=== PATIENT | female | born 1935 | race Caucasian/White ===

== ENCOUNTER 2020-10-14 16:18 | Inpatient (IN) | payer MEDICARE, OTHER ==
--- NOTE | 2020-10-14 16:50 | ED ---
General Adult HPI - General Chief complaint: Neuro Symptoms/Deficit Stated complaint: Not feeling right Time Seen by Provider: 10/14/20 16:32 Source: patient, family Mode of arrival: wheelchair Limitations: no limitations - History of Present Illness Initial comments: Dictation was produced using [employer] dictation software. please excuse any grammatical, word or spelling errors. Chief Complaint: 84-year-old female with past medical history of A. fib, diabetes, hypertension presents to the emergency department for tongue, left upper extremity, left lower extremity paresthesias History of Present Illness: 84-year-old female. She states that approximately 3-4 hours prior to arrival she began feeling abnormal symptoms. She states it began with lightheadedness. Shortly after she began feeling paresthesias to her tongue. She states that it's her whole tongue. Immediately after she started having symptoms to her left upper extremity left lower leg. She denies any weakness. He denies complete numbness but states that it feels like paresthesias. She denies any history of stroke or TIA. She has no pain complaints at this time. The ROS documented in this emergency department record has been reviewed and confirmed by me. Those systems with pertinent positive or negative responses have been documented in the HPI. All other systems are other negative and/or noncontributory. PHYSICAL EXAM: General Impression: Alert and oriented x3, not in acute distress, tearful HEENT: Normocephalic atraumatic, extra-ocular movements intact, pupils equal and reactive to light bilaterally, mucous membranes moist. Cardiovascular: Heart regular rate and rhythm Chest: Able to complete full sentences, no retractions, no tachypnea Abdomen: abdomen soft, non-tender, non-distended, no organomegaly Musculoskeletal: Pulses present and equal in all extremities, no peripheral edema Motor: no focal deficits noted Neurological: CN II-XII grossly intact, no focal motor or sensory deficits noted, sensation intact to painful stimuli, she states that there is a sensory deficit to light touch. She states she can feel light touch over it feels abnormal she describes as paresthesias. NIH of 1 Skin: Intact with no visualized rashes Psych: Anxious ED course: 84-year-old female presents with abnormal sensation to light touch of the tongue, left upper extremity left lower extremity for the last 3-4 hours. Vital signs upon arrival shows blood pressure 220/70, rest of vital signs within except acceptable limits. Patient appears slightly anxious at bedside. She has no pain complaints. Patient given NIH score of 1 for present but altered sensation Laboratory evaluation obtained. CBC remarkable. Coag panel is within accep table limits. Metabolic panel is unremarkable. There is potassium 5.[address] brain and CT angios shows no acute findings. There is a incidental 4 mm right upper lobe nodule. Patient given aspirin. She is reevaluated bedside at 6:50 PM these have sensory issues to her left part of her body. Patient given aspirin. She'll be admitted with consultation to neurology. EKG interpretation: Ventricular rate 90, A. fib, QRS 84, QTC 435. No NM prolongation, no QTC prolongation, no ST or T-wave changes noted. EKG compared to 10/21/2014 showing no changes. Overall, this EKG is unremarkable - Related Data Home Medications Medication Instructions Recorded Confirmed Cholecalciferol [Vitamin D3 (25 1,000 unit PO DAILY 10/20/14 10/20/14 Mcg = 1000 Iu)] Enalapril [Vasotec] 20 mg PO BID 10/20/14 10/20/14 Furosemide [Lasix] 20 mg PO DAILY 10/20/14 10/20/14 Omeprazole [PriLOSEC] 20 mg PO DAILY 10/20/14 10/20/14 Simvastatin [Zocor] 20 mg PO HS 10/20/14 10/20/14 Warfarin [Coumadin] 5 mg PO MOTH 10/20/14 10/20/14 Warfarin [Coumadin] 5 mg PO SUTUWEFRSA 10/20/14 10/20/14 amLODIPine [Norvasc] 5 mg PO DAILY 10/20/14 10/20/14 glyBURIDE [Glyburide] 2.5 mg PO BID 10/20/14 10/20/14 Previous Rx's Medication Instructions Recorded ALPRAZolam [Xanax] 0.25 mg PO TID PRN #20 tab 10/23/14 Aspirin 81 mg PO DAILY #30 chewable 10/23/14 HYDROcodone/APAP 5-325MG [[place] 1 each PO Q6HR PRN #30 tab 10/23/14 5-325] Allergies Allergy/AdvReac Type Severity Reaction Status Date / Time Penicillins Allergy Rash/Hives Verified 06/19/21 16:23 Review of Systems ROS Statement: Those systems with pertinent positive or pertinent negative responses have been documented in the HPI. ROS Other: All systems not noted in ROS Statement are negative. Past Medical History Past Medical History: Atrial Fibrillation, Cancer, Diabetes Mellitus, GERD/Reflux, Hyperlipidemia, Hypertension, Osteoarthritis (OA) Additional Past Medical History / Comment(s): breast ca lymph nodes on rt and radiation 10 years ago History of Any Multi-Drug Resistant Organisms: None Reported Past Surgical History: Appendectomy, Back Surgery, Breast Surgery, Joint Replacement, Orthopedic Surgery Additional Past Surgical History / Comment(s): left knee x2 rt knee arthroscopy bilat shoulders rotator cuffs back fusion 30 years ago due to have reconstruction of knee cap in december, colonoscopy, d&c, rt lumpectomy with lymph node dissection, lt ankle orif. Past Anesthesia/Blood Transfusion Reactions: Postoperative Nausea & Vomiting (PONV) Past Psychological History: Anxiety Past Alcohol Use History: Rare Past Drug Use History: None Reported - Past Family History Father Family Medical History: Coronary Artery Disease (CAD), CVA/TIA, Diabetes Mellitus Mother Family Medical History: Coronary Artery Disease (CAD), Hyperlipidemia, Hypertension, Renal Disease General Exam Limitations: no limitations Course Vital Signs 10/14/20 10/14/20 10/14/20 16:19 16:46 17:55 Temperature 97.9 F 97.9 F Pulse Rate 98 98 88 Respiratory 20 20 18 Rate Blood Pressure 228/70 228/70 183/90 O2 Sat by Pulse 97 97 97 Oximetry Medical Decision Making - Lab Data Result diagrams: 10/14/20 16:58 10/14/20 16:58 Lab Results 10/14/20 10/14/20 10/14/20 Range/Units 16:58 16:58 16:58 WBC 6.9 (3.8-10.6) k/uL RBC 4.73 (3.80-5.40) m/uL Hgb 15.2 (11.4-16.0) gm/dL Hct 45.6 (34.0-46.0) % MCV 96.4 (80.0-100.0) fL MCH 32.2 (25.0-35.0) pg MCHC 33.4 (31.0-37.0) g/dL RDW 13.0 (11.5-15.5) % Plt Count 192 (150-450) k/uL MPV 9.7 Neutrophils % 67 % Lymphocytes % 18 % Monocytes % 9 % Eosinophils % 2 % Basophils % 2 % Neutrophils # 4.6 (1.3-7.7) k/uL Lymphocytes # 1.3 (1.0-4.8) k/uL Monocytes # 0.6 (0-1.0) k/uL Eosinophils # 0.2 (0-0.7) k/uL Basophils # 0.1 (0-0.2) k/uL PT 20.8 H (9.0-12.0) sec INR 2.1 H (<1.2) APTT 23.1 (22.0-30.0) sec Sodium 140 (137-145) mmol/L Potassium 5.5 H (3.5-5.1) mmol/L Chloride 108 H (98-107) mmol/L Carbon Dioxide 21 L (22-30) mmol/L Anion Gap 11 mmol/L BUN 19 H (7-17) mg/dL Creatinine 0.95 (0.52-1.04) mg/dL Est GFR (CKD-EPI)AfAm 64 (>60 ml/min/1.73 sqM) Est GFR (CKD-EPI)NonAf 56 (>60 ml/min/1.73 sqM) Glucose 155 H (74-99) mg/dL Calcium 9.6 (8.4-10.2) mg/dL Magnesium 1.8 (1.6-2.3) mg/dL Disposition Clinical Impression: Sensory deficit, left Disposition: ADMITTED IP TO THIS HOSP Condition: Fair Referrals: Mary Vallecillo MD [Primary Care Provider] - 1-2 days
[2020-10-14 17:11] LABS: Basophils # (A) 0.1 k/uL (0-0.2); Basophils % (A) 2 %; Eosinophils # (A) 0.2 k/uL (0-0.7); Eosinophils % (A) 2 %; HCT 45.6 % (34.0-46.0); HGB 15.2 gm/dL (11.4-16.0); Lymphocytes # (A) 1.3 k/uL (1.0-4.8); Lymphocytes % (A) 18 %; MCH 32.2 pg (25.0-35.0); MCHC 33.4 g/dL (31.0-37.0); MCV 96.4 fL (80.0-100.0); Mean Platelet Volume 9.7; Monocytes # (A) 0.6 k/uL (0-1.0); Monocytes % (A) 9 %; Neutrophils # (A) 4.6 k/uL (1.3-7.7); Neutrophils % (A) 67 %; Platelet Count 192 k/uL (150-450); RBC 4.73 m/uL (3.80-5.40); WBC 6.9 k/uL (3.8-10.6)
[2020-10-14 17:20] LABS: INR 2.1 (<1.2); Partial Thromboplastin Time 23.1 sec (22.0-30.0); Prothrombin Time 20.8 sec (9.0-12.0)
[2020-10-14 17:28] LABS: Calcium 9.6 mg/dL (8.4-10.2); Magnesium 1.8 mg/dL (1.6-2.3)
[2020-10-14 17:31] LABS: Potassium 5.5 mmol/L (3.5-5.1)
--- NOTE | 2020-10-14 18:35 | CT ---
EXAM: CT brain wo con CLINICAL HISTORY: Weakness, dysarthria and left-sided tingling. COMPARISON: MR 10/22/2014. TECHNIQUE: Contiguous axial noncontrast images of the brain were obtained. Coronal and sagittal refor mats were generated and reviewed. Automated dose control was used for this exam. FINDINGS: There is no evidence for intracranial hemorrhage, mass effect or midline shift. The white matter is g rossly preserved. Ventricular size and configuration is within normal limits for degree of parenchymal volume. The paranasal sinuses are clear. The mastoid air cells are clear. No evidence for calvarial fracture. IMPRESSION: No acute intracranial abnormality.
--- NOTE | 2020-10-14 18:42 | CT ---
EXAMINATION TYPE: CT angio head neck DATE OF EXAM: 10/14/2020 HISTORY: Weakness, speech disturbance and left sided tingling COMPARISON: None available. CT DLP: 1695.7 mGycm. Automated Exposure Control for Dose Reduction was Utilized. TECHNIQUE: CTA scan of the neck is performed with IV Contrast, patient injected with 65 mL of Isovue 370, axial images are obtained, coronal and sagittal reformatted images are reviewed. Three-D recons tructed images are created on an independent workstation and reviewed. FINDINGS: There is mild atherosclerosis of the aortic arch. Otherwise normal three-vessel branching of the aort a. There is no evidence of high-grade stenosis, dissection or aneurysm seen in the bilateral common c arotid, cervical internal carotid and vertebral arteries. There is no evidence of high-grade stenosis, dissection or aneurysm in the intracranial internal oshea tid arteries, anterior, middle and posterior cerebral arteries as well as in the imaged vertebral and basilar arteries. The communicating arteries are unremarkable. There is incidental 4 mm right upper lobe nodule. IMPRESSION: No significant abnormality of the head/neck arteries. Incidental 4 mm right upper lobe nodule. Recommend follow-up.
[2020-10-14] MEDS ORDERED: NALOXONE 0.4 MG/ML 1 ML VIAL IV PRN (18:48)
[2020-10-14] MEDS ORDERED: ASPIRIN 81 MG PO STA (18:51)
[2020-10-14] MEDS: SODIUM CHLORIDE 0.9% 1,000 ML IV SCH (19:50)
[2020-10-14 20:31] LABS: Glucose,Whole Blood 168 mg/dL (75-99)
[2020-10-14] MEDS: INSULIN ASPART (NovoLOG) 100 UNIT/ML VIAL SQ SCH (20:48)
[2020-10-14] MEDS: cloNIDine HCL 0.1 MG TAB PO SCH (21:39)
[2020-10-15 05:50] LABS: Glucose,Whole Blood 126 mg/dL (75-99)
[2020-10-15] MEDS: INSULIN ASPART (NovoLOG) 100 UNIT/ML VIAL SQ SCH ×4 (05:56→20:24)
[2020-10-15] MEDS: cloNIDine HCL 0.1 MG TAB PO SCH (08:02)
--- NOTE | 2020-10-15 10:34 | P.CNNES ---
History of Present Illness Consult date: 10/15/20 Requesting physician: Denis Espinal Reason for Consult: suspect stroke because of left sensory deficit History of Present Illness: This is an 84-year-old right handed woman with medical history of atrial fibrillation, diabetes mellitus (for 15 years), hypertension (>15 years), multiple surgies on the left knee (at least 5 years) who presented emergency department on 10/14/2020 for left-sided paresthesia.. She presented around 16:18 on 10/14/2020. She stated that around 2pm on 10/14/2020 she began feeling off, she felt lightheaded and then started having paresthesia to her entire tongue then after that she had paresthesia of the left upper and lower extremity. She denies any weakness. She denies any new focal weakness, difficulty getting her words out, visual disturbance or difficulty swallowing. She said her symptoms lasted for couples hours. Since than having intermittent paresthesia of left hand/forearm and left leg. Patient denies history of stroke or TIAs in the past. Patient home medication i ncludes Coumadin and is compliant with her dose. Other home medications are simvastatin 20 mg daily at bedtime, lisinopril, hydralazine 50 mg 1 tablet twice a day, loratadine, Lasix, amlodipine, glyburide, omeprazole. Of note she said she had at least 5 surgies on the left knee and as result walks with a limb on the left leg and uses a walker. She also has difficulty getting her words out for the past 3 years and was told by her physician it was because of "neck nodules". Some of the work-up in the hospital consisted of: Initial vital signs his blood pressure of 228/70, heart rate of 98, respiratory of 20, temperature of 97.9 Fahrenheit oral and pulse ox of 97% at room air. Patient blood pressure has been in the range of 180s to 220 systolic and diastolic between 70s and 90. CT of the head is reported as no acute intracranial abnormality. I reviewed the CT of the head and I felt there is a lacunar infarct over the anterior edge of the right thalamus and appears chronic (or even subacute but does not appear acute). CT of the head and neck was reported as no significant abnormality. There is incidental 4 mm right upper lobe nodule. Recommend follow-up. EKG is reported as atrial fibrillation with premature ventricular or aberrantly conducted complexes. CBC with differential: Is within normal limits. Chemistry panel is a potassium is 5.5 and there is slight hemolysis. Sodium is 140, creatinine is 0.95, calcium is 9.6 and magnesium is 1.8 and those are within the normal limits. Glucose is 155 which is mildly elevated. Coagulation study: PT 20.8, INR: 2.1 and PTT: 23.1. INR is therapeutic. Review of Systems Review of system: The 12 point system was reviewed and apparent positive and negative per HPI. Past Medical History Past Medical History: Atrial Fibrillation, Cancer, Diabetes Mellitus, GERD/Reflux, Hypertension, Osteoarthritis (OA) Additional Past Medical History / Comment(s): breast ca lymph nodes removal on rt and radiation 10 years ago History of Any Multi-Drug Resistant Organisms: None Reported Past Surgical History: Appendectomy, Back Surgery, Breast Surgery, Joint Replacement, Orthopedic Surgery Additional Past Surgical History / Comment(s): left knee x4, rt knee arthroscopy, bilat shoulders rotator cuffs, back fusion 35years ago Past Anesthesia/Blood Transfusion Reactions: Postoperative Nausea & Vomiting (PONV) Past Psychological History: Anxiety Smoking Status: Former smoker Past Alcohol Use History: Rare Additional Past Alcohol Use History / Comment(s): occasional beers sociallu, stopped smoking at 25 years old Past Drug Use History: None Reported - Past Family History Father Family Medical History: Coronary Artery Disease (CAD), CVA/TIA, Diabetes Mellitus Mother Family Medical History: Coronary Artery Disease (CAD), Hyperlipidemia, Hypertension, Renal Disease Medications and Allergies Home Medications Medication Instructions Recorded Confirmed Type Furosemide [Lasix] 20 mg PO DAILY 10/20/14 10/14/20 History Omeprazole [PriLOSEC] 20 mg PO DAILY 10/20/14 10/14/20 History Simvastatin [Zocor] 20 mg PO HS 10/20/14 10/14/20 History glyBURIDE [Glyburide] 2.5 mg PO DAILY 10/20/14 10/14/20 History Loratadine 10 mg PO DAILY 10/14/20 10/14/20 History Warfarin Sodium 2 mg PO MOWE@1700 10/14/20 10/14/20 History Warfarin Sodium 4 mg PO SUTUTHFRSA@1700 10/14/20 10/14/20 History amLODIPine [Norvasc] 10 mg PO DAILY 10/14/20 10/14/20 History hydrALAZINE HCL 50 mg PO BID@0900,1700 10/14/20 10/14/20 History lisinopriL 30 mg PO DAILY 10/14/20 10/14/20 History Allergies Allergy/AdvReac Type Severity Reaction Status Date / Time Penicillins Allergy Rash/Hives Verified 10/14/20 18:51 Physical Examination - Vital Signs Vital Signs: Vital Signs Temp Pulse Pulse Resp BP BP Pulse Ox 10/15/20 08:00 52 L 10/15/20 07:58 97.5 F L 52 L 18 141/68 94 L 10/15/20 03:50 97.3 F L 53 L 18 147/61 95 10/15/20 00:03 43 L 20 10/14/20 23:27 97.9 F 43 L 20 121/54 97 10/14/20 20:44 98.5 F 56 L 24 198/74 95 10/14/20 20:00 98.5 F 56 L 24 198/74 93 L 10/14/20 19:51 63 18 192/87 10/14/20 19:03 70 18 210/86 97 10/14/20 17:55 88 18 183/90 97 10/14/20 16:46 97.9 F 98 20 228/70 97 10/14/20 16:19 97.9 F 98 20 228/70 97 Intake and Output 10/14/20 10/15/20 10/15/20 22:59 06:59 14:59 Intake Total 240 Balance 240 Intake: Oral 240 Other: Voiding Method Toilet Toilet # Voids 1 Weight 95.254 kg 94.4 kg GENERAL: The patient is lying in bed and is not in acute distress. CHEST: The heart rate is regular rate rhythm. No murmurs to auscultation. No carotid bruit bilaterally. LUNG: Clear to auscultation bilaterally no wheezing noted throughout. Not labored breathing. ABDOMEN/GI: Bowel sounds present in all 4 quadrants. No tenderness to palpation throughout. NEUROLOGICAL: Higher mental function: The patient is awake, alert, oriented to self, place and time. Patient is following simple and complex commands. No aphasia and no neglect. Cranial nerves: The pupils are round, equal and reactive to light and accommodation. Visual espinoza are full to confrontation throughout. Extraocular movement is intact no nystagmus is noted. Facial sensation is normal to touch throughout. The facial strength is normal throughout. Hearing is mildly decreased bilaterally to hand rub. Tongue is midline and moved [id number] without any difficulty. Has mild dysarthria is noted (stated had this for 3 years). Shoulder shrug is normal bilaterally. Motor: Gait is walks is antalgic because of left knee pain (walks with limp). The strength is left thigh flexion is 5-. Knee extension is 4+ to 5-. Otherwise 5 over 5 throughout. Has some atrophy around the proximal knee where she had surgery (has scar and stated had at least 5 surgies). Otherwise normal tone and bulk throughout.. Cerebellum: Normal finger to nose bilaterally. Sensation: Sensation is decreased over the left lower extremity to touch. Otherwise normal to touch throughout. Reflexes (right/left): 3+ left triceps, 1+ left patellar, ankles 1+ bilaterally. Otherwise 2+ throughout. Plantars are downgoing bilaterally. Results Gavin virus PCR was not detected - Laboratory Findings CBC and BMP: 10/14/20 16:58 10/15/20 10:42 Abnormal Lab Findings: Abnormal Labs 10/14/20 10/14/20 10/14/20 16:58 16:58 20:29 PT 20.8 H INR 2.1 H Potassium 5.5 H Chloride 108 H Carbon Dioxide 21 L BUN 19 H Glucose 155 H POC Glucose (mg/dL) 168 H 10/15/20 05:49 PT INR Potassium Chloride Carbon Dioxide BUN Glucose POC Glucose (mg/dL) 126 H Assessment and Plan Assessment: * Paresthesia of the left side and tongue. Seems due to acute or subacute strok e. 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 * Uncontrolled hypertension * Atrial fibrillation on warfarin (INR is 2.1) * Left leg weakness due to multiple left knee surgies (at least 5) * Dysarthria for 3 years (was notified by her physician that due to ?"neck nodules" * Incidental 4 mm right upper lobe nodule seen on CTA neck * Diabetes mellitus (for 15 years) * History of hypertension (for >15 years) * Hyperkalemia Plan: * CT of the head is reported as no acute intracranial abnormality. I reviewed the CT of the head and I felt there is a lacunar infarct over the anterior edge of the right thalamus and appears chronic (or even subacute but does not appear acute). * CT of the head and neck was reported as no significant abnormality. There is incidental 4 mm right upper lobe nodule. Recommend follow-up. * In the ED the patient was started on aspirin 324 mg once. I started the patient on ASA 81mg daily in addition to her home dose of Coumadin. Coumadin can be restarted (patient was notified of risk vs benefit of restarting coumadin and is in agreement of restarting Coumadin). Started the patient on Lipitor 40mg qhs for secondary stroke prophylaxis. * I ordered MRI of the brain, 2-D echo, TSH level. * Ordered vitamin B12 and folate levels. ED team ordered HbA1c and is pending. * Ordered neuro checks every 4 hours and continuous cardiac monitoring * PT, OT and SAMPLE BUILDER are consulted. * Will defer further work-up of incidental lung nodules to the primary team. * Recommend to gradually cotrol the Hypertension. Avoid >15-20% drop within 24 hours. Will defer the management to the primary team. * Will defer the rest of medical management to the primary team. * Regarding DVT prophylaxis, she is restarted on Coumadin which is sufficient from neurological stand point. The plan is discussed with the patient's nurse. Thank you for the consult. Reyes Kaufman MD Neuro-Hospitalist Time with Patient: Greater than 30
[2020-10-15] MEDS: FUROSEMIDE 20 MG TAB PO SCH (10:41)
[2020-10-15] MEDS: glipiZIDE 5 MG TAB PO SCH (10:41)
[2020-10-15] MEDS: ASPIRIN 81 MG PO SCH (10:41)
[2020-10-15] MEDS: hydrALAZINE HCL 50 MG TAB PO SCH ×3 (10:41→15:44)
[2020-10-15] MEDS: PANTOPRAZOLE 40 MG TABLET PO SCH (10:41)
[2020-10-15] MEDS: amLODIPine 10 MG TAB PO SCH ×2 (10:41→11:33)
[2020-10-15 11:09] LABS: Calcium 8.7 mg/dL (8.4-10.2)
[2020-10-15 11:55] LABS: Glucose,Whole Blood 110 mg/dL (75-99)
--- NOTE | 2020-10-15 14:38 | P.HPIM ---
History of Present Illness H&P Date: 10/15/20 Chief Complaint: Left-sided tingling History of presenting complaint: This is a pleasant 84-year-old patient of Dr. Mary Vallecillo. Chronic stable medical conditions include atrial fibrillation, diabetes, GERD, hypertension, osteoarthritis. At her baseline uses a cane and a walker. Yesterday around 2 PM patient noticed that she had tingling and numbness in the left arm distal part of the left leg site of the left neck and half of the time. No change in speech swallowing headache or vision. Symptoms are present intermittently. Patient also had the symptoms this morning. Initial computed tomography scan was negative. Denies any neck pain. No prior history of stroke. Neurology consulted. Review of systems: GEN.: None EYES: None HEENT: None NECK: None RESPIRATORY: None CARDIOVASCULAR: None GASTROINTESTINAL: None GENITOURINARY: None MUSCULOSKELETAL: Joint pains LYMPHATICS: None HEMATOLOGICAL: None PSYCHIATRY: None NEUROLOGICAL: As above Past medical history to include: Atrial fibrillation, diabetes, GERD, hypertension, osteomyelitis, breast cancer with lymph nodes removed on the right and radiation 10 years ago, anxiety Social history: Alcohol rarely. son at home. Does use a cane and a walker Physical examination: VITAL SIGNS: 97.5, 52, 18, 141/68, 94% room air] GENERAL: BMI 33.6, laying in bed, awake a bit tired. EYES: Pupils equal. Conjunctiva normal. HEENT: External appearance of nose and ears normal, oral cavity grossly normal. NECK: JVD not raised; masses not palpable. HEART: First and second heart sounds are normal; no edema. LUNGS: Respiratory rate normal; clear to auscultation. ABDOMEN: Soft, nontender, liver spleen not palpable, no masses palpable. PSYCH: Alert and oriented x3; mood and affect normal. MUSCULAR skeletal: Evidence of OA NEUROLOGICAL: Cranial nerves grossly intact; no facial asymmetry, power and sensation grossly intact. LYMPHATICS: No lymph nodes palpable in the axilla and neck INVESTIGATIONS, reviewed in the clinical context: Potassium 4 creatinine 0.89 Admission labs: WBC 6.9 hemoglobin 15.2 INR 2.1 potassium 5.5 creatinine 0.95 TSH 0.4 Coronavirus [PCR]: Not detected EKG tracing personally reviewed by me-atrial fibrillation, rate of 90, PVC Computed tomography scan brain without contrast: Unremarkable CT [place] head and neck: No significant abnormality. 4 mm right upper lobe nodu le. Assessment and plan: -Patient presents with left-sided numbness in the arm distal left leg, left neck and half of the tongue intermittently. Strongly suspicious for brain stem ischemia. Note that patient is a underlying atrial fibrillation and patient is anticoagulated. Do MRI. 2-D echocardiogram. Neuro checks. Neurology consult -Obesity BMI 33.6 Weight loss measures and follow with PCP -Essential hypertension Continue with hydralazine, amlodipine. -Diabetes mellitus type 2, on oral hypoglycemic Continue with glyburide. Follow Accu-Cheks -Persistent atrial fibrillation, rate controlled On Coumadin -Coumadin monitoring Follow INR -GERD Continue with Prilosec -Hyperlipidemia Change Zocor to Lipitor 40 mg. Neurology consulted. MRI 2-D echo Kram ordered. Home medications to be continued. Aspirin 81 mg. Care was discussed with the patient. Questions answered. Telemetry Past Medical History Past Medical History: Atrial Fibrillation, Cancer, Diabetes Mellitus, GERD/Reflux, Hypertension, Osteoarthritis (OA) Additional Past Medical History / Comment(s): breast ca lymph nodes removal on rt and radiation 10 years ago History of Any Multi-Drug Resistant Organisms: None Reported Past Surgical History: Appendectomy, Back Surgery, Breast Surgery, Joint Replacement, Orthopedic Surgery Additional Past Surgical History / Comment(s): left knee x4, rt knee arthroscopy, bilat shoulders rotator cuffs, back fusion 35years ago Past Anesthesia/Blood Transfusion Reactions: Postoperative Nausea & Vomiting (P ONV) Past Psychological History: Anxiety Smoking Status: Former smoker Past Alcohol Use History: Rare Additional Past Alcohol Use History / Comment(s): occasional beers sociallu, stopped smoking at 25 years old Past Drug Use History: None Reported - Past Family History Father Family Medical History: Coronary Artery Disease (CAD), CVA/TIA, Diabetes Mellitus Mother Family Medical History: Coronary Artery Disease (CAD), Hyperlipidemia, Hypertension, Renal Disease Medications and Allergies Home Medications Medication Instructions Recorded Confirmed Type Furosemide [Lasix] 20 mg PO DAILY 10/20/14 10/14/20 History Omeprazole [PriLOSEC] 20 mg PO DAILY 10/20/14 10/14/20 History Simvastatin [Zocor] 20 mg PO HS 10/20/14 10/14/20 History glyBURIDE [Glyburide] 2.5 mg PO DAILY 10/20/14 10/14/20 History Loratadine 10 mg PO DAILY 10/14/20 10/14/20 History Warfarin Sodium 2 mg PO MOWE@1700 10/14/20 10/14/20 History Warfarin Sodium 4 mg PO SUTUTHFRSA@1700 10/14/20 10/14/20 History amLODIPine [Norvasc] 10 mg PO DAILY 10/14/20 10/14/20 History hydrALAZINE HCL 50 mg PO BID@0900,1700 10/14/20 10/14/20 History lisinopriL 30 mg PO DAILY 10/14/20 10/14/20 History Allergies Allergy/AdvReac Type Severity Reaction Status Date / Time Penicillins Allergy Rash/Hives Verified 10/14/20 18:51 Physical Exam Vitals: Vital Signs Temp Pulse Pulse Resp BP BP Pulse Ox 10/15/20 08:00 52 L 10/15/20 07:58 97.5 F L 52 L 18 141/68 94 L 10/15/20 03:50 97.3 F L 53 L 18 147/61 95 10/15/20 00:03 43 L 20 10/14/20 23:27 97.9 F 43 L 20 121/54 97 10/14/20 20:44 98.5 F 56 L 24 198/74 95 10/14/20 20:00 98.5 F 56 L 24 198/74 93 L 10/14/20 19:51 63 18 192/87 10/14/20 19:03 70 18 210/86 97 10/14/20 17:55 88 18 183/90 97 10/14/20 16:46 97.9 F 98 20 228/70 97 10/14/20 16:19 97.9 F 98 20 228/70 97 Intake and Output 10/14/20 10/15/20 10/15/20 22:59 06:59 14:59 Intake Total 240 Balance 240 Intake: Oral 240 Other: Voiding Method Toilet Toilet # Voids 1 Weight 95.254 kg 94.4 kg Results CBC & Chem 7: 10/14/20 16:58 10/15/20 10:42 Labs: Abnormal Lab Results - Last 24 Hours (Table) 10/14/20 10/14/20 10/14/20 Range/Units 16:58 16:58 20:29 PT 20.8 H (9.0-12.0) sec INR 2.1 H (<1.2) Potassium 5.5 H (3.5-5.1) mmol/L Chloride 108 H (98-107) mmol/L Carbon Dioxide 21 L (22-30) mmol/L BUN 19 H (7-17) mg/dL Glucose 155 H (74-99) mg/dL POC Glucose (mg/dL) 168 H (75-99) mg/dL 10/15/20 Range/Units 05:49 PT (9.0-12.0) sec INR (<1.2) Potassium (3.5-5.1) mmol/L Chloride (98-107) mmol/L Carbon Dioxide (22-30) mmol/L BUN (7-17) mg/dL Glucose (74-99) mg/dL POC Glucose (mg/dL) 126 H (75-99) mg/dL Thrombosis Risk Factor Assmnt - Choose All That Apply Any of the Below Risk Factors Present?: No Other Risk Factors: Yes Each Risk Factor Represents 3 Points: Age 75 years or older Other congenital or acquired thrombophilia - If yes, enter type in comment: No Thrombosis Risk Factor Assessment Total Risk Factor Score: 3 Thrombosis Risk Factor Assessment Level: Moderate Risk
[2020-10-15] MEDS: SODIUM CHLORIDE 0.9% 1,000 ML IV SCH (15:45)
[2020-10-15 16:53] LABS: Glucose,Whole Blood 137 mg/dL (75-99)
[2020-10-15 17:00] LABS: Chol/HDL Ratio 3.6; LDL Cholesterol,Calculated 58.2 mg/dL (0.0-131.0); VLDL Calculation 19.8 mg/dL (5.00-40.00)
[2020-10-15] MEDS ORDERED: WARFARIN 2 MG TAB PO SCH (17:00)
[2020-10-15] MEDS: ATORVASTATIN 40 MG TAB PO SCH (20:24)
[2020-10-15 20:38] LABS: Glucose,Whole Blood 145 mg/dL (75-99)
[2020-10-15] MEDS ORDERED: ATORVASTATIN 10 MG TAB PO SCH (21:00)
[2020-10-15 22:53] LABS: Hemoglobin A1C 5.9 % (4.0-6.0)
[2020-10-16 06:31] LABS: Glucose,Whole Blood 129 mg/dL (75-99)
[2020-10-16] MEDS: INSULIN ASPART (NovoLOG) 100 UNIT/ML VIAL SQ SCH ×4 (06:33→20:02)
[2020-10-16] MEDS: PANTOPRAZOLE 40 MG TABLET PO SCH (06:34)
[2020-10-16 08:29] LABS: INR 1.9 (<1.2); Prothrombin Time 18.4 sec (9.0-12.0)
[2020-10-16] MEDS: ASPIRIN 81 MG PO SCH (08:42)
[2020-10-16] MEDS: hydrALAZINE HCL 50 MG TAB PO SCH ×2 (08:42→17:55)
[2020-10-16] MEDS: amLODIPine 10 MG TAB PO SCH (08:42)
[2020-10-16] MEDS: FUROSEMIDE 20 MG TAB PO SCH (08:42)
[2020-10-16] MEDS: glipiZIDE 5 MG TAB PO SCH (08:42)
[2020-10-16] MEDS ORDERED: LORazepam 2 MG/ML INJ IV PRN (09:00)
--- NOTE | 2020-10-16 09:14 | P.CRDCN ---
History of Present Illness History of present illness: HISTORY OF PRESENTING ILLNESS This is a pleasant 84-year-old female past medical history significant for chronic persistent atrial fibrillation on long-term anticoagulation, hypert ension, dyslipidemia and diabetes mellitus. She previously followed in the office with Dr. Avalos, however has not been seen since 2015. We have been asked to see in consultation for atrial fibrillation. She presented to the hospital with symptoms of tongue tingling and left upper and lower extremity weakness. She also has a history of dysarthria that is chronic and unchanged throughout this episode. Her symptoms have resolved. She underwent CT imaging of the brain that was unremarkable for an acute event. She is scheduled for an MRI. DIAGNOSTICS EKG reveals a child fibrillation with controlled ventricular rate heart rate of 90 bpm with a single PVC. Telemetry tracings indicate atrial fibrillation with controlled ventricular rates. Laboratory reviewed, CBC unremarkable, INR 1.9, sodium 142, potassium on admission 5. 5 repeat today 4.0, creatinine 0.89, magnesium 1.8, LDL 58, HDL 30 and TSH 0.467. Current cardiac medications include simvastatin 20 mg daily, amlodipine 10 mg daily, Lasix 20 mg daily, hydralazine 50 mg twice a day, lisinopril 30 mg daily and warfarin. Most recent echocardiogram obtained in 2014 revealed preserved LV systolic function with ejection fraction 50-55%, mild MR, mild TR and mild pulmonary hypertension with an RVSP of 44 mmHg. REVIEW OF SYSTEMS At the time of my exam: CONSTITUTIONAL: Denies fever or chills. CARDIOVASCULAR: Denies chest pain, shortness of breath, orthopnea, PND or palpitations. RESPIRATORY: Denies cough. GASTROINTESTINAL: Denies abdominal pain, diarrhea, constipation, nausea or vomiting. MUSCULOSKELETAL: Denies myalgias. NEUROLOGIC: Denies numbness, tingling, headacbe or weakness. ENDOCRINE: Denies fatigue, weight change, polydipsia or polyurina. GENITOURINARY: Denies burning, hematuria or urgency with micturation. HEMATOLOGIC: Denies history of anemia or bleeding. PHYSICAL EXAMINATION Blood pressure 162/56 heart rate 40 afebrile and maintaining oxygen saturation on room air. CONSTITUTIONAL: No apparent distress. HEENT: Head is normocephalic. Pupils are equal, round. Sclerae anicteric. Mucous membranes of the mouth are moist. No JVD. No carotid bruit. CHEST EXAMINATION: Lungs are clear to auscultation. No chest wall tenderness is noted on palpation or with deep breathing. HEART EXAMINATION: Irregular rate and rhythm. S1, S2 heard. Soft systolic ejection murmur at the base, no gallops or rub. ABDOMEN: Soft, nontender. Positive bowel sounds. EXTREMITIES: 2+ peripheral pulses, no lower extremity edema and no calf tenderness. NEUROLOGIC EXAMINATION: Patient is awake, alert and oriented x3. Slurred speech noted. ASSESSMENT Left sided weakness and paresthesia, likely due to subacute stroke Chronic persistent atrial fibrillation with slow ventricular response maintained on warfarin Hypertension, uncontrolled Diabetes mellitus Dyslipidemia Hyperkalemia, resolved PLAN Avoid rate lowering agents. Echocardiogram has been obtained and will be reviewed. Ongoing neurologic evaluation. Thank you kindly for this consultation. Nurse Practitioner note has been reviewed, I agree with a documented findings and plan of care. Patient was seen and examined. Past Medical History Past Medical History: Atrial Fibrillation, Cancer, Diabetes Mellitus, GERD/Reflux, Hypertension, Osteoarthritis (OA) Additional Past Medical History / Comment(s): breast ca lymph nodes removal on rt and radiation 10 years ago History of Any Multi-Drug Resistant Organisms: None Reported Past Surgical History: Appendectomy, Back Surgery, Breast Surgery, Joint Replacement, Orthopedic Surgery Additional Past Surgical History / Comment(s): left knee x4, rt knee arthroscopy, bilat shoulders rotator cuffs, back fusion 35years ago Past Anesthesia/Blood Transfusion Reactions: Postoperative Nausea & Vomiting (PONV) Past Psychological History: Anxiety Smoking Status: Former smoker Past Alcohol Use History: Rare Additional Past Alcohol Use History / Comment(s): occasional beers sociallu, stopped smoking at 25 years old Past Drug Use History: None Reported - Past Family History Father Family Medical History: Coronary Artery Disease (CAD), CVA/TIA, Diabetes Mellitus Mother Family Medical History: Coronary Artery Disease (CAD), Hyperlipidemia, Hy pertension, Renal Disease Medications and Allergies Home Medications Medication Instructions Recorded Confirmed Type Furosemide [Lasix] 20 mg PO DAILY 10/20/14 10/14/20 History Omeprazole [PriLOSEC] 20 mg PO DAILY 10/20/14 10/14/20 History Simvastatin [Zocor] 20 mg PO HS 10/20/14 10/14/20 History glyBURIDE [Glyburide] 2.5 mg PO DAILY 10/20/14 10/14/20 History Loratadine 10 mg PO DAILY 10/14/20 10/14/20 History Warfarin Sodium 2 mg PO MOWE@1700 10/14/20 10/14/20 History Warfarin Sodium 4 mg PO SUTUTHFRSA@1700 10/14/20 10/14/20 History amLODIPine [Norvasc] 10 mg PO DAILY 10/14/20 10/14/20 History hydrALAZINE HCL 50 mg PO BID@0900,1700 10/14/20 10/14/20 History lisinopriL 30 mg PO DAILY 10/14/20 10/14/20 History Allergies Allergy/AdvReac Type Severity Reaction Status Date / Time Penicillins Allergy Rash/Hives Verified 10/14/20 18:51 Physical Exam Vitals: Vital Signs Temp Pulse Resp BP Pulse Ox 10/16/20 03:17 98 F 43 L 18 166/57 93 L 10/16/20 02:00 58 L 16 10/15/20 23:17 97.6 F 58 L 16 147/58 97 10/15/20 20:00 98.1 F 43 L 18 142/55 94 L 10/15/20 15:44 97.9 F 47 L 18 132/55 93 L 10/15/20 12:46 38 L 10/15/20 12:00 97.6 F 38 L 18 110/59 97 Intake and Output 10/15/20 10/16/20 10/16/20 22:59 06:59 14:59 Intake Total 240 Balance 240 Intake: Oral 240 Other: Voiding Method Toilet Toilet # Voids 1 Weight 92.9 kg Results 10/14/20 16:58 10/15/20 10:42 Coagulation 10/16/20 Range/Units 07:42 PT 18.4 H (9.0-12.0) sec Lipids 10/14/20 Range/Units 16:58 Triglycerides 99.0 (0.0-149.0) mg/dL Cholesterol 108 (0-200) mg/dL HDL Cholesterol 30.0 L (40.0-60.0) mg/dL Cholesterol/HDL Ratio 3.60 Comprehensive Metabolic Panel 10/15/20 Range/Units 10:42 Sodium 142 (137-145) mmol/L Potassium 4.0 (3.5-5.1) mmol/L Chloride 111 H (98-107) mmol/L Carbon Dioxide 26 (22-30) mmol/L BUN 18 H (7-17) mg/dL Creatinine 0.89 (0.52-1.04) mg/dL Glucose 126 H (74-99) mg/dL Calcium 8.7 (8.4-10.2) mg/dL Current Medications Generic Name Dose Route Start Last Admin Trade Name Freq PRN Reason Stop Dose Admin Amlodipine Besylate 10 mg 10/15/20 10:45 10/16/20 08:42 Amlodipine 10 Mg Tab PO 10 mg DAILY URSULA Administration Aspirin 81 mg 10/15/20 09:45 10/16/20 08:42 Aspirin 81 Mg PO 81 mg DAILY URSULA Administration Atorvastatin Calcium 40 mg 10/15/20 21:00 10/15/20 20:24 Atorvastatin 40 Mg Tab PO 40 mg HS URSULA Administration Furosemide 20 mg 10/15/20 10:45 10/16/20 08:42 Furosemide 20 Mg Tab PO 20 mg DAILY URSULA Administration Glipizide 5 mg 10/15/20 10:45 10/16/20 08:42 Glipizide 5 Mg Tab PO 5 mg DAILY URSULA Administration Hydralazine HCl 50 mg 10/15/20 10:32 10/16/20 08:42 Hydralazine Hcl 50 Mg Tab PO 50 mg BID@0900,1700 URSULA Administration Sodium Chloride 1,000 mls @ 20 mls/hr 10/14/20 19:00 10/15/20 15:45 Saline 0.9% IV Not Given .Q24H URSULA Insulin Aspart 0 unit 10/14/20 21:00 10/16/20 06:33 Insulin Aspart (Novolog) 100 Unit/Ml Vial SQ Not Given ACHS [facility] Protocol Lorazepam 0.5 mg 10/16/20 09:00 Lorazepam 2 Mg/Ml Inj IV ONCE PRN Anxiety Miscellaneous Information 0 each 10/15/20 10:42 Warfarin Per Pharmacy MISCELLANE DIRECTED PRN PHARMACY DOSING VANCO Naloxone HCl 0.2 mg 10/14/20 18:48 Naloxone 0.4 Mg/Ml 1 Ml Vial IV Q2M PRN Opioid Reversal Pantoprazole Sodium 40 mg 10/15/20 10:45 10/16/20 06:34 Pantoprazole 40 Mg Tablet PO 40 mg [id number] URSULA Administration Warfarin Sodium 2 mg 10/16/20 17:00 Warfarin 2 Mg Tab PO MOWE@1700 [facility] Warfarin Sodium 4 mg 10/15/20 17:00 10/15/20 15:47 Warfarin 2 Mg Tab PO 4 mg SUTUTHFRSA@1700 [facility] Administration Intake and Output 10/15/20 10/16/20 10/16/20 22:59 06:59 14:59 Intake Total 240 Balance 240 Intake: Oral 240 Other: Voiding Method Toilet Toilet # Voids 1 Weight 92.9 kg 10/14/20 16:58 10/15/20 10:42
[2020-10-16 11:52] LABS: Glucose,Whole Blood 115 mg/dL (75-99)
--- NOTE | 2020-10-16 11:52 | MR ---
EXAMINATION TYPE: MR brain wo/w con DATE OF EXAM: 10/16/2020 COMPARISON: CT brain 10/14/2020, MR brain 10/22/2014 HISTORY: Left side paresthesia, stroke TECHNIQUE: Multiplanar, multisequence images of the brain and brainstem is performed without and with IV contras t, utilizing 9 mL intravenous Gadavist . FINDINGS: Diffusion weighted images demonstrate no evidence of a recent infarct or other diffusion ab normality. There is no extra-axial fluid collection or definitive change in white matter signal abno rmality, confluent and scattered periventricular, pericallosal and subcortical white matter hyperinte nsities are present on inversion recovery T2-weighted sequences, direct comparison is difficult due t o differences in technique. There are likely 50 lesions or more, largest in the right frontal lobe o n axial image 24 measures 11 mm The ventricular system and cisternal spaces are normal in size and ap pearance. The brain volume is age appropriate, likely age-related atrophy. Midline structures demonstrate normal morphology. The craniocervical junction appears within normal limits. Post contrast images demonstrate no abnormal enhancement within the brain, focus in the left frontal calvarium, axial image 2021 data set was not seen on prior exam, there is possible enhanceme nt, comparable precontrast images not seen. Lesion measures approximately 1.8 cm in cephalad to cauda l dimension on axial image 20 of the T2 data set, post contrast images show a similar size, lesion ap parently within the diploic space, 8 mm in transverse dimension, 2.3 cm in cephalad to caudal dimensi on, sagittal image 33 Lesion not definitively identified on CT The dural venous sinuses appear patent . The visualized sinuses are clear and the globes are intact. IMPRESSION: Nonspecific white matter demyelination as described. There is age-related atrophy. No acu te cerebrovascular accident is evident. Indeterminate abnormal focus within the left calvarium, consi tim bone scan for additional evaluation
--- NOTE | 2020-10-16 12:03 | ECHOF ---
Referral Reason:stroke MEASUREMENTS -------- HEIGHT: 165.1 cm WEIGHT: 92.5 kg BP: RVIDd: 4.1 cm (< 3.3) IVSd: 1.1 cm (0.6 - 1.1) LVIDd: 5.0 cm (3.9 - 5.3) LVPWd: 1.0 cm (0.6 - 1.1) IVSs: 1.7 cm LVIDs: 3.1 cm LVPWs: 1.8 cm LAESV Index (A-L): 60.32 ml/m Ao Diam: 3.0 cm (2.0 - 3.7) AV Cusp: 2.3 cm (1.5 - 2.6) LA Diam: 5.3 cm (2.7 - 3.8) MV EXCURSION: 24.599 mm (> 18.000) MV EF SLOPE: 136 mm/s (70 - 150) EPSS: 0.7 cm MV E Augusto: 1.25 m/s MV DecT: 109 ms MV A Augusto: 0.48 m/s MV E/A Ratio: 2.63 RAP: 5.00 mmHg RVSP: 56.57 mmHg FINDINGS -------- Atrial fibrillation. This was a technically good study. The left ventricular size is normal. Overall left ventricular systolic function is low-normal with, an EF between 50 - 55 %. The right ventricle is normal in size. LA is severely dilated >40 ml/m2 The right atrial size is normal. Agitated Saline Study not able to confirm shunt. There is mild aortic valve sclerosis. There is no evidence of aortic regurgitation. Mild mitral regurgitation is present. Mild tricuspid regurgitation present. There is moderate pulmonary hypertension. The right ventric ular systolic pressure, as measured by Doppler, is 56.57mmHg. Trace/mild (physiologic) pulmonic regurgitation. The aortic root size is normal. There is no pericardial effusion. CONCLUSIONS -------- 1. The left ventricular size is normal. 2. Overall left ventricular systolic function is low-normal with, an EF between 50 - 55 %. 3. The right ventricle is normal in size. 4. LA is severely dilated >40 ml/m2 5. The right atrial size is normal. 6. Agitated Saline Study not able to confirm shunt. 7. There is mild aortic valve sclerosis. 8. Mild mitral regurgitation is present. 9. Mild tricuspid regurgitation present. 10. There is moderate pulmonary hypertension. 11. The right ventricular systolic pressure, as measured by Doppler, is 56.57mmHg. 12. Trace/mild (physiologic) pulmonic regurgitation. 13. The aortic root size is normal. 14. There is no pericardial effusion. COLOR COATER: Sammi Colmenares RDCS
--- NOTE | 2020-10-16 13:07 | P.PN ---
Subjective Progress Note Date: 10/16/20 Patient is seen at bedside and she stated that she continues to have intermittent numbness over the left arm. Otherwise she denies any new focal complaints. MRI of the brain is reported as nonspecific white matter demyelinating as described. There is age-related atrophy. No acute cerebral vascular accident is evident. Indeterminate abnormal focus in the left calvarium, consider bone scan for additional evaluation. I personally reviewed the MRI of the brain and I do not see any acute or subacute ischemia. I felt on the FLAIR the patient had nonspecific white matter lesions. I felt the patient had that tiny lacunar and bilateral thalamus. I am sure if the lesion so small that it cannot be pi cked up on the MRI because of the slices especially since the patient has a symptoms. Objective - Vital Signs Vital signs: Vital Signs Temp 97.9 F 10/16/20 08:00 Pulse 43 L 10/16/20 08:00 Resp 18 10/16/20 08:00 BP 162/56 10/16/20 08:00 Pulse Ox 95 10/16/20 08:00 Intake & Output 10/15/20 10/16/20 10/16/20 18:59 06:59 18:59 Intake Total 480 240 Output Total 300 Balance 180 240 Weight 92.9 kg Intake: Oral 480 240 Output: Urine 300 Other: Voiding Method Toilet # Voids 1 1 - Exam GENERAL: The patient is lying in bed and is not in acute distress. NEUROLOGICAL: Higher mental function: The patient is awake, alert, oriented to self, place and time. Patient is following simple and complex commands. No aphasia and no neglect. Cranial nerves: The pupils are round, equal and reactive to light and accommodation. Visual espinoza are full to confrontation throughout. Extraocular movement is intact no nystagmus is noted. Facial sensation is normal to touch throughout. The facial strength is normal throughout. Hearing is mildly decreased bilaterally to hand rub. Tongue is midline and moved [id number] wi thout any difficulty. Has mild dysarthria is noted (stated had this for 3 years). Shoulder shrug is normal bilaterally. Motor: Gait is walks is antalgic because of left knee pain (walks with limp). The strength is left thigh flexion is 5-. Knee extension is 4+ to 5-. Otherwise 5 over 5 throughout. Has some atrophy around the proximal knee where she had surgery (has scar and stated had at least 5 surgies). Otherwise normal tone and bulk throughout.. Cerebellum: Normal finger to nose bilaterally. Sensation: Sensation is decreased over the left lower extremity to touch. Otherwise normal to touch throughout. Reflexes (right/left): 3+ left triceps, 1+ left patellar, ankles 1+ bilaterally. Otherwise 2+ throughout. Plantars are downgoing bilaterally. - Labs CBC & Chem 7: 10/14/20 16:58 10/15/20 10:42 Labs: Abnormal Lab Results - Last 24 Hours (Table) 10/14/20 10/15/20 10/15/20 Range/Units 16:58 16:48 20:20 PT (9.0-12.0) sec INR (<1.2) POC Glucose (mg/dL) 137 H 145 H (75-99) mg/dL HDL Cholesterol 30.0 L (40.0-60.0) mg/dL 10/16/20 10/16/20 10/16/20 Range/Units 06:10 07:42 11:51 PT 18.4 H (9.0-12.0) sec INR 1.9 H (<1.2) POC Glucose (mg/dL) 129 H 115 H (75-99) mg/dL HDL Cholesterol (40.0-60.0) mg/dL Assessment and Plan Assessment: * Paresthesia of the left side and tongue. Seems due to acute or subacute stroke but not negative on MRI Brain (not sure if lesion is small). 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 Likely due to small vessel disease * Uncontrolled hypertension * Atrial fibrillation on warfarin (INR is 2.1) * Left leg weakness due to multiple left knee surgies (at least 5) * Dysarthria for 3 years (was notified by her physician that due to ?"neck nodules" * Incidental 4 mm right upper lobe nodule seen on CTA neck * Diabetes mellitus (for 15 years) * History of hypertension (for >15 years) * Hyperkalemia Plan: * CT of the head is reported as no acute intracranial abnormality. I reviewed the CT of the head and I felt there is a lacunar infarct over the anterior edge of the right thalamus and appears chronic (or even subacute but does not appear acute). * CT of the head and neck was reported as no significant abnormality. There is incidental 4 mm right upper lobe nodule. Recommend follow-up. * MRI of the brain is reported as nonspecific white matter demyelinating as described. There is age-related atrophy. No acute cerebral vascular accident is evident. Indeterminate abnormal focus in the left calvarium, consider bone scan for additional evaluation. I personally reviewed the MRI of the brain and I do not see any acute or subacute ischemia. I felt on the FLAIR the patient had nonspecific white matter lesions. I felt the patient had that tiny lacunar and bilateral thalamus. I am sure if the lesion so small that it cannot be picked up on the MRI because of the slices especially since the patient has a symptoms. * Hemoglobin A1c is 5.9 which is within normal limits. * Folate is 13 which is within normal limits. * Lipid panel: Triglyceride 99, cholesterol 108, LDL 58 and HDL 30. * TSH is 0.467 which is considered within normal limits. * 2-D echo was reported as overall left ventricular systolic function is low normal with ejection fraction of 55%. Left atrium is severely dilated that. A bubble study was negative for a PFO. * Continue ASA 81mg daily in addition to her home dose of Coumadin. Continue Lipitor 40mg qhs for secondary stroke prophylaxis. * Vitamin B12 is 358 which is considered within low normal limits. Therefore I started the patient on vitamin B12 500 g daily. * I started the patient on Gabapentin 100mg 1 tab bid and continues to have paresthesia can go up to 1 tab tid (gradually go up as outpatient if needed and patient tolerates medication). * Regarding indeterminate abnormal focus in the left calvarium, consider bone scan for additional evaluation. The bone scan can be obtained as outpatient. * Ordered neuro checks every 4 hours and continuous cardiac monitoring. * PT, OT and INSURANCE BILLING SPECIALIST are consulted. * Cardiology is on board. * Will defer further work-up of incidental lung nodules to the primary team. * Will defer the rest of medical management to the primary team. * Regarding DVT prophylaxis, she is restarted on Coumadin which is sufficient from neurological stand point. * The patient needs to follow-up with a neurologist as outpatient within 1-2 weeks. There is no further neurological work-up. The plan is discussed with the patient's nurse. Reyes Kaufman MD Neuro-Hospitalist Time with Patient: Less than 30
[2020-10-16] MEDS: GABAPENTIN 100 MG CAP PO SCH ×2 (13:48→20:02)
[2020-10-16] MEDS: CYANOCOBALAMIN 500 MCG TAB PO SCH (13:48)
[2020-10-16 16:39] LABS: Glucose,Whole Blood 112 mg/dL (75-99)
[2020-10-16] MEDS ORDERED: WARFARIN 2 MG TAB PO SCH (17:00)
[2020-10-16] MEDS ORDERED: WARFARIN 2 MG TAB PO ONE (18:00)
[2020-10-16 19:47] LABS: Glucose,Whole Blood 168 mg/dL (75-99)
[2020-10-16] MEDS: SODIUM CHLORIDE 0.9% 1,000 ML IV SCH (19:56)
[2020-10-16] MEDS: ATORVASTATIN 40 MG TAB PO SCH (20:02)
[2020-10-17 03:39] VITALS: RESP 16
[2020-10-17 05:56] LABS: Glucose,Whole Blood 152 mg/dL (75-99)
[2020-10-17] MEDS: INSULIN ASPART (NovoLOG) 100 UNIT/ML VIAL SQ SCH ×3 (06:03→16:57)
[2020-10-17] MEDS: PANTOPRAZOLE 40 MG TABLET PO SCH (06:03)
[2020-10-17 07:39] LABS: INR 1.8 (<1.2); Prothrombin Time 17.5 sec (9.0-12.0)
[2020-10-17] MEDS: ASPIRIN 81 MG PO SCH (08:12)
[2020-10-17] MEDS: hydrALAZINE HCL 50 MG TAB PO SCH (08:12)
[2020-10-17] MEDS: CYANOCOBALAMIN 500 MCG TAB PO SCH (08:13)
[2020-10-17] MEDS: GABAPENTIN 100 MG CAP PO SCH (08:13)
[2020-10-17] MEDS: amLODIPine 10 MG TAB PO SCH (08:13)
[2020-10-17] MEDS: glipiZIDE 5 MG TAB PO SCH (08:13)
[2020-10-17] MEDS: FUROSEMIDE 20 MG TAB PO SCH (08:13)
[2020-10-17 08:56] VITALS: TEMP 97.8
--- NOTE | 2020-10-17 10:50 | P.PN ---
Subjective HISTORY OF PRESENTING ILLNESS This is a pleasant 84-year-old female past medical history significant for chronic persistent atrial fibrillation on long-term anticoagulation, hypertension, dyslipidemia and diabetes mellitus. She previously followed in the office with Dr. Avalos, however has not been seen since 2014. We have been asked to see in consultation for atrial fibrillation. She presented to the hospital with symptoms of tongue tingling and left upper and lower extremity weakness. She also has a history of dysarthria that is chronic and unchanged throughout this episode. Her symptoms have resolved. She underwent CT imaging of the brain that was unremarkable for an acute event. She is scheduled for an MRI. 10/17/2020 Pt seen and examined sitting up in the recliner. She has no symptoms of chest pain, shortness of breath, dizziness or palpitations. Blood pressure 160/78 heart rate 48 afebrile and maintaining oxygen saturation on room air. MRI of the brain was negative for an acute CVA or infarct. Echocardiogram obtained revealed preserved LV systolic function with EF 50-55%, severely dilated LA, negative bubble study, mild MR, mild TR and moderate pulmonary hypertension with RVSP 56mmHg. Laboratory data reviewed, INR 1.8. Telemetry tracings reviewed, while sleeping she has bradycardia. While awake heart rates are between 45-55. PHYSICAL EXAMINATION CONSTITUTIONAL: No apparent distress. HEENT: Head is normocephalic. Pupils are equal, round. Sclerae anicteric. Mucous membranes of the mouth are moist. No JVD. No carotid bruit. CHEST EXAMINATION: Lungs are clear to auscultation. No chest wall tenderness is noted on palpation or with deep breathing. HEART EXAMINATION: Irregular rate and rhythm. S1, S2 heard. Soft systolic ejection murmur at the base, no gallops or rub. EXTREMITIES: 2+ peripheral pulses, no lower extremity edema and no calf tenderness. ASSESSMENT Left sided weakness and paresthesia, likely due to subacute stroke Chronic persistent atrial fibrillation with slow ventricular response maintained on warfarin, asymptomatic. Hypertension, uncontrolled Diabetes mellitus Dyslipidemia Hyperkalemia, resolved PLAN Avoid rate lowering agents. Heart rates are stable and she is asymptomatic. Continue warfarin for thromboembolic protection. Neurology has added aspirin. Recommend increasing daily warfarin dosing to 4 mg. Clinically stable from a cardiac perspective, follow up with Dr. Gonzales in the office in 2 weeks. Nurse Practitioner note has been reviewed, I agree with a documented findings and plan of care. Patient was seen and examined. Objective - Vital Signs Vital signs: Vital Signs Temp 97.8 F 10/17/20 08:00 Pulse 54 L 10/17/20 08:00 Resp 16 10/17/20 08:00 BP 126/59 10/17/20 08:00 Pulse Ox 94 L 10/17/20 08:00 Intake & Output 10/16/20 10/17/20 10/17/20 18:59 06:59 18:59 Intake Total 720 222 180 Output Total 0 Balance 720 222 180 Weight 93.2 kg Intake: Oral 720 222 180 Output: Urine 0 Other: Voiding Method Toilet # Voids 2 2 # Bowel Movements 0 - Labs CBC & Chem 7: 10/14/20 16:58 10/15/20 10:42 Labs: Abnormal Lab Results - Last 24 Hours (Table) 10/16/20 10/16/20 10/16/20 Range/Units 11:51 16:38 19:45 PT (9.0-12.0) sec INR (<1.2) POC Glucose (mg/dL) 115 H 112 H 168 H (75-99) mg/dL 10/17/20 10/17/20 Range/Units 05:54 06:40 PT 17.5 H (9.0-12.0) sec INR 1.8 H (<1.2) POC Glucose (mg/dL) 152 H (75-99) mg/dL
[2020-10-17] MEDS ORDERED: hydrALAZINE HCL 50 MG TAB PO STA (11:03)
[2020-10-17 11:36] LABS: Glucose,Whole Blood 92 mg/dL (75-99)
--- NOTE | 2020-10-17 13:11 | P.PN ---
Progress Note - Text Progress Note Date: 10/16/20 Chief Complaint: Left-sided tingling History of presenting complaint: This is a pleasant 84-year-old patient of Dr. Mayr Vallecillo. Chronic stable medical conditions include atrial fibrillation, diabetes, GERD, hypertension, osteoarthritis. At her baseline uses a cane and a walker. Yesterday around 2 PM patient noticed that she had tingling and numbness in the left arm distal part of the left leg site of the left neck and half of the time. No change in speech swallowing headache or vision. Symptoms are present intermittently. Patient also had the symptoms this morning. Initial computed tomography scan was negative. Denies any neck pain. No prior history of stroke. Neurology consulted. Today: Left-sided numbness tingling persist. Had a MRI. Results pending. No new issues. No new neurological symptoms. Laying in bed Daughter the bedside. Review of systems: Was done for constitutional, cardiovascular, GI, pulmonary. relevant finding as above Current medications reviewed in today's electronic records Past medical history to include: Atrial fibrillation, diabetes, GERD, hypertension, osteomyelitis, breast cancer with lymph nodes removed on the right and radiation 10 years ago, anxiety Social history: Alcohol rarely. son at home. Does use a cane and a walker Physical examination: VITAL SIGNS: 97.7, 53, 16, 152.70, 94% room air GENERAL: Laying in bed, awake, comfortable EYES: Pupils equal. Conjunctiva normal. NECK: JVD not raised; masses not palpable. HEART: First and second heart sounds are normal; no edema. LUNGS: Respiratory rate normal; clear to auscultation. ABDOMEN: Soft, nontender, liver spleen not palpable, no masses palpable. PSYCH: Alert and oriented x3; mood and affect normal. MUSCULAR skeletal: Evidence of OA NEUROLOGICAL: Cranial nerves grossly intact; no facial asymmetry, power and sensation grossly intact. INVESTIGATIONS, reviewed in the clinical context: 2-D echocardiogram: EF 50-55% no shunt demonstrated. Moderate pulmonary hypertension Potassium 4 creatinine 0.89 Admission labs: WBC 6.9 hemoglobin 15.2 INR 2.1 potassium 5.5 creatinine 0.95 TSH 0.4 Coronavirus [PCR]: Not detected EKG tracing personally reviewed by me-atrial fibrillation, rate of 90, PVC Computed tomography scan brain without contrast: Unremarkable CT [place] head and neck: No significant abnormality. 4 mm right upper lobe nodule. Assessment and plan: -Patient presents with left-sided numbness in the arm distal left leg, left neck and half of the tongue intermittently. Strongly suspicious for brain stem ischemia. Note that patient is a underlying atrial fibrillation and patient is anticoagulated. MRI results pending. Neuro checks. Neurology consult -Obesity BMI 33.6 Weight loss measures and follow with PCP -Secondary pulmonary hypertension Follow clinically -Essential hypertension Continue with hydralazine, amlodipine. -Diabetes mellitus type 2, on oral hypoglycemic Continue with glyburide. Follow Accu-Cheks -Persistent atrial fibrillation, rate controlled On Coumadin -Coumadin monitoring Follow INR -GERD Continue with Prilosec -Hyperlipidemia Change Zocor to Lipitor 40 mg. Discussed with the patient daughter the bedside. We'll follow up on MRI results and with neurology.
[2020-10-17 13:43] VITALS: PULSE 58
[2020-10-17] MEDS ORDERED: LISINOPRIL-HCTZ 10-12.5 MG 1 EACH TAB PO STA (14:14)
[2020-10-17] MEDS ORDERED: hydrALAZINE HCL 50 MG TAB PO SCH (16:00)
[2020-10-17 16:42] LABS: Glucose,Whole Blood 143 mg/dL (75-99)
[2020-10-17 17:24] VITALS: BP 162/60
--- NOTE | 2020-10-17 17:41 | P.DS ---
Providers Date of admission: 10/14/20 18:48 Expected date of discharge: 10/17/20 Attending physician: Stanislav Gerardo Consults: 10/14/20 18:49 Consult Physician Routine Consulting Provider: Reyes Kaufman Consult Reason/Comments: suspect CVA Do you want consulting provider notified?: Yes 10/15/20 12:00 Consult Physician Routine Consulting Provider: Oscar Diana Consult Reason/Comments: A.fib with slow ventricular rate; HR dipping in the 30's. Do you want consulting provider notified?: Yes Primary care physician: Mary Vallecillo [facility] Course: Chief Complaint: Left-sided tingling History of presenting complaint: This is a pleasant 84-year-old patient of Dr. Mary Vallecillo. Chronic stable medical conditions include atrial fibrillation, diabetes, GERD, hypertension, osteoarthritis. At her baseline uses a cane and a walker. Yesterday around 2 PM patient noticed that she had tingling and numbness in the left arm distal part of the left leg site of the left neck and half of the time. No change in speech swallowing headache or vision. Symptoms are present intermittently. Patient also had the symptoms this morning. Initial computed tomography scan was negative. Denies any neck pain. No prior history of stroke. Neurology consulted. MRI: Nonspecific. It could be a lacunar infarct. Echocardiogram negative for any thrombus. CT angiogram: Unremarkable Today: Blood pressure been running on the higher side. Dose of hydralazine increased to 50 mg 3 times a day. Zestoretic 10/12.5 daily at bedtime added. Care was discussed with the patient. Questions answered. Discussion and discharge planning more than 35 minutes Consultation: Dr. Kaufman from neurology Past medical history to include: Atrial fibrillation, diabetes, GERD, hypertension, osteomyelitis, breast cancer with lymph nodes removed on the right and radiation 10 years ago, anxiety Social history: Alcohol rarely. son at home. Does use a cane and a walker Physical examination: VITAL SIGNS: Afebrile, 58, 16, 1 62 x 60 GENERAL: Laying in bed, awake, comfortable EYES: Pupils equal. Conjunctiva normal. NECK: JVD not raised; masses not palpable. HEART: First and second heart sounds are normal; no edema. LUNGS: Respiratory rate normal; clear to auscultation. ABDOMEN: Soft, nontender, liver spleen not palpable, no masses palpable. PSYCH: Alert and oriented x3; mood and affect normal. MUSCULAR skeletal: Evidence of OA NEUROLOGICAL: Cranial nerves grossly intact; no facial asymmetry, power and sensation grossly intact. INVESTIGATIONS, reviewed in the clinical context: MRI brain: Nonspecific white matter demyelination with some age-related atrophy. 2-D echocardiogram: EF 50-55% no shunt demonstrated. Moderate pulmonary hypertension Potassium 4 creatinine 0.89 Admission labs: WBC 6.9 hemoglobin 15.2 INR 2.1 potassium 5.5 creatinine 0.95 TSH 0.4 Coronavirus [PCR]: Not detected EKG tracing personally reviewed by me-atrial fibrillation, rate of 90, PVC Computed tomography scan brain without contrast: Unremarkable CT [place] head and neck: No significant abnormality. 4 mm right upper lobe nodule. Assessment and plan: -Patient presents with left-sided numbness in the arm distal left leg, left neck and half of the tongue intermittently. : Possible lacunar infarct Note that patient is a underlying atrial fibrillation and patient is anticoagulated. MRI results nonspecific. -Obesity BMI 33.6 Weight loss measures and follow with PCP -Secondary pulmonary hypertension Follow clinically -Essential hypertension Continue with hydralazine, amlodipine. Lisinopril HCl added -Diabetes mellitus type 2, on oral hypoglycemic Continue with glyburide. Follow Accu-Cheks -Persistent atrial fibrillation, rate controlled On Coumadin -Coumadin monitoring Follow INR -GERD Continue with Prilosec -Hyperlipidemia Change Zocor to Lipitor 40 mg. Disposition: Home Patient Condition at Discharge: Fair Plan - Discharge Summary Discharge Rx Participant: No New Discharge Prescriptions: New Aspirin 81 mg PO DAILY chew Cyanocobalamin [Vitamin B-12] 500 mcg PO DAILY #30 tab Lisinopril-Hctz 10-12.5 mg [Zestoretic 10-12.5] 1 tab PO HS #30 tab Atorvastatin [Lipitor] 40 mg PO HS #30 tab Famotidine [Pepcid] 20 mg PO BID #60 tablet Continue glyBURIDE [Glyburide] 2.5 mg PO DAILY Omeprazole [PriLOSEC] 20 mg PO DAILY Furosemide [Lasix] 20 mg PO DAILY amLODIPine [Norvasc] 10 mg PO DAILY Loratadine 10 mg PO DAILY Changed Warfarin Sodium 4 mg PO DAILY #0 hydrALAZINE HCL 50 mg PO TID #90 tab Discontinued Simvastatin [Zocor] 20 mg PO HS lisinopriL 30 mg PO DAILY Warfarin Sodium 2 mg PO MOWE@1700 Discharge Medication List Furosemide [Lasix] 20 mg PO DAILY 10/20/14 [History] Omeprazole [PriLOSEC] 20 mg PO DAILY 10/20/14 [History] glyBURIDE [Glyburide] 2.5 mg PO DAILY 10/20/14 [History] Loratadine 10 mg PO DAILY 10/14/20 [History] amLODIPine [Norvasc] 10 mg PO DAILY 10/14/20 [History] Aspirin 81 mg PO DAILY chew 10/17/20 [Rx] Atorvastatin [Lipitor] 40 mg PO HS #30 tab 10/17/20 [Rx] Cyanocobalamin [Vitamin B-12] 500 mcg PO DAILY #30 tab 10/17/20 [Rx] Famotidine [Pepcid] 20 mg PO BID #60 tablet 10/17/20 [Rx] Lisinopril-Hctz 10-12.5 mg [Zestoretic 10-12.5] 1 tab PO HS #30 tab 10/17/20 [Rx] Warfarin Sodium 4 mg PO DAILY #0 10/17/20 [Rx] hydrALAZINE HCL 50 mg PO TID #90 tab 10/17/20 [Rx] Follow up Appointment(s)/Referral(s): Rene Gonzales MD [STAFF PHYSICIAN] - 2 Weeks (office will call you with date and time of follow up appointment) Kyle Mckeon DO [Doctor of Osteopathic Medicine] - 11/06/20 9:30 am (Appointment is scheduled for 11/06/20 at 0930 AM) Mary Vallecillo MD [Primary Care Provider] - 1-2 days (office will call with date and time of follow up appointment) Patient Instructions/Handouts: Stroke (DC), Type 2 Diabetes in the Older Adult (DC)
[2020-10-17] MEDS ORDERED: WARFARIN 5 MG TAB PO ONE (18:00)
[2020-10-18] MEDS ORDERED: ASPIRIN 81 MG PO SCH (09:00)
== END 2020-10-17 18:18 | disposition home or self-care (01) | DRG 65 ==
LOC: EC 16:18 → 3SCARD 18:48
PROVIDERS: ADMIT Hospitalist; ATTEND Hospitalist
DX: I63.81 Other cerebral infarction due to occlusion or stenosis of small artery (principal); I48.19 Other persistent atrial fibrillation; I10 Essential (primary) hypertension; Z79.84 Long term (current) use of oral hypoglycemic drugs; Z79.82 Long term (current) use of aspirin; E11.65 Type 2 diabetes mellitus with hyperglycemia; E78.5 Hyperlipidemia, unspecified; K21.9 Gastro-esophageal reflux disease without esophagitis; Z92.3 Personal history of irradiation; Z86.73 Personal history of transient ischemic attack (TIA), and cerebral infarction without residual deficits; Z83.3 Family history of diabetes mellitus; M19.90 Unspecified osteoarthritis, unspecified site; Z87.891 Personal history of nicotine dependence; E87.5 Hyperkalemia; R47.1 Dysarthria and anarthria; E66.9 Obesity, unspecified; Z68.33 Body mass index [BMI] 33.0-33.9, adult; I27.29 Other secondary pulmonary hypertension; F41.9 Anxiety disorder, unspecified; Z20.822 Contact with and (suspected) exposure to COVID-19; R29.701 NIHSS score 1; Z79.01 Long term (current) use of anticoagulants; Z82.49 Family history of ischemic heart disease and other diseases of the circulatory system; Z85.3 Personal history of malignant neoplasm of breast; Z79.899 Other long term (current) drug therapy; Z98.1 Arthrodesis status
CPT/HCPCS: 36415; 70450; 70496; 70498; 70553; 80048; 80061; 82607; 82746; 83036; 83735; 84443; 85025; 85610; 85730; 87635; 93005; 93306; 99285

== ENCOUNTER → 2020-12-06 | Outpatient (CLI) | payer MEDICARE ==
--- NOTE | 2020-12-06 15:53 | FL ---
EXAMINATION TYPE: FL barium swallow w video DATE OF EXAM: 12/06/2020 COMPARISON: NONE HISTORY: Dysphagia, dysphonia TECHNIQUE: Fluoroscopy. FINDINGS: Fluoroscopic guidance was provided for the procedure performed in conjunction with the [facility] pathology department. Please see complete report forthcoming from the Speech Pathology departmen t. Various consistencies from thin liquid to solids were administered. Fluoroscopy time 1 minute 20 seconds. Number of images: 0. No aspiration or penetration was evident. No significant pooling was observed in the vallecula. There was normal propulsion of the bolus. Note is made of anterior cervical body spurring C5 and lower levels IMPRESSION: 1. Essentially normal modified barium swallow. No aspiration or penetration was evident.
== END | disposition home or self-care (01) ==
LOC: RADUSWWP 08:48
PROVIDERS: ATTEND Otolaryngology
DX: R13.10 Dysphagia, unspecified (principal)
CPT/HCPCS: 74230

== ENCOUNTER → 2020-12-11 | Outpatient (CLI) | payer MEDICARE ==
--- NOTE | 2020-12-11 12:41 | FL ---
EXAMINATION TYPE: FL barium swallow DATE OF EXAM: 12/11/2020 CLINICAL INDICATION: 85-year-old female R13.10, dysphagia, R49.0, dysphonia. COMPARISON: Modified barium swallow study 12/06/2020 Total Fluoroscopy Time: 3 minutes 1 second 64 images obtained. FINDINGS: The swallowing mechanism is normal. However, there is very subtle hypopharyngeal asymmetry on the fro ntal view. The left side is slightly higher in position. This likely relates to the patient's vocal f old dysfunction. Otherwise, hypopharyngeal anatomy is preserved. The cervical and thoracic portions have a normal course and caliber. Mild tertiary peristalsis is de monstrated. There is a mild narrowing at the distal esophagus with slight delay in clearance. The muc luis alberto is normal and no persistent filling defect is encountered. A small sliding hiatal hernia is demonstrated. Mild gastroesophageal reflux with Valsalva and positio nal maneuvers. IMPRESSION: 1. 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 2. Small sliding hiatal hernia with mild gastroesophageal reflux. 3. Slight narrowing distal esophagus could represent a mild stricture contributing to a slight delay in clearance from the distal esophagus. Consider direct visualization if indicated.
== END | disposition home or self-care (01) ==
LOC: RADUSWWP 10:56
PROVIDERS: ATTEND Otolaryngology
DX: K21.9 Gastro-esophageal reflux disease without esophagitis (principal); K44.9 Diaphragmatic hernia without obstruction or gangrene; R13.10 Dysphagia, unspecified
CPT/HCPCS: 74220

== ENCOUNTER 2023-10-03 13:33 | Inpatient (IN) | payer MEDICARE ==
[2023-10-03 14:15] LABS: Basophils % (A) 1 %; Eosinophils # (A) 0.1 k/uL (0-0.7); Eosinophils % (A) 1 %; HCT 41.9 % (34.0-46.0); HGB 13.4 gm/dL (11.4-16.0); Lymphocytes # (A) 1.6 k/uL (1.0-4.8); Lymphocytes % (A) 28 %; MCH 32.5 pg (25.0-35.0); MCHC 32.1 g/dL (31.0-37.0); MCV 101.1 fL (80.0-100.0); Mean Platelet Volume 9.1; Monocytes # (A) 0.3 k/uL (0-1.0); Monocytes % (A) 6 %; Neutrophils # (A) 3.6 k/uL (1.3-7.7); Neutrophils % (A) 63 %; Platelet Count 238 k/uL (150-450); RBC 4.14 m/uL (3.80-5.40); RDW 12.9 % (11.5-15.5); WBC 5.7 k/uL (3.8-10.6)
--- NOTE | 2023-10-03 14:23 | XR ---
EXAMINATION TYPE: XR chest 2V DATE OF EXAM: 10/03/2023 2:17 PM CLINICAL INDICATION:Female, 87 years old with history of EDWARD; COMPARISON: Chest radiographs from 06/02/2010 TECHNIQUE: XR chest 2V Frontal and lateral views of the chest. FINDINGS: Lungs/Pleura: There is no evidence of pleural effusion, focal consolidation, or pneumothorax. Pulmonary vascularity: Unremarkable. Heart/mediastinum: Cardiomediastinal silhouette is enlarged and stable. Single-lead cardiac conductio n device overlying the left hemithorax with lead projecting over the right ventricle. Musculoskeletal: No acute osseous pathology. Other findings: None IMPRESSION: No acute cardiopulmonary disease/process.
[2023-10-03 14:27] LABS: INR 3.6 (<1.2)
[2023-10-03 14:28] LABS: Partial Thromboplastin Time 37.5 sec (22.0-30.0); Prothrombin Time 35.7 sec (10.0-12.5)
[2023-10-03 14:54] LABS: ALT 19 U/L (4-34); AST 24 U/L (14-36); African American GFR (CKD) 61 (>60 ml/min/1.73 sqM); Albumin 4.5 g/dL (3.5-5.0); Alkaline Phosphatase 108 U/L (38-126); Anion Gap 9 mmol/L; Blood Urea Nitrogen 24 mg/dL (7-17); Calcium 9.9 mg/dL (8.4-10.2); Carbon Dioxide 21 mmol/L (22-30); Chloride 112 mmol/L (98-107); Glucose 256 mg/dL (74-99); Magnesium 1.3 mg/dL (1.6-2.3); Non-African American GFR(CKD) 53 (>60 ml/min/1.73 sqM); Potassium 4.1 mmol/L (3.5-5.1); Sodium 142 mmol/L (137-145); Total Bilirubin 0.7 mg/dL (0.2-1.3); Total Protein 7.4 g/dL (6.3-8.2)
[2023-10-03] MEDS: MAGNESIUM SULFATE-D5W PMX 1 GM in DEXTROSE/WATER 1 100ML.BAG IVPB ONE (16:03)
--- NOTE | 2023-10-03 16:24 | ED ---
General Adult HPI - General Chief complaint: Shortness of Breath Stated complaint: SOB,Back Pain Time Seen by Provider: 10/03/23 14:31 Source: patient, RN notes reviewed, old records reviewed Mode of arrival: ambulatory Limitations: no limitations - History of Present Illness Initial comments: 87-year-old female presenting with chest pain and breath which began just prior to arrival. Patient states the pain did radiate to her shoulder blades. Pain w as worse with deep inspiration. Patient has history of atrial fibrillation status post pacemaker she is currently on Coumadin. No vomiting. No diaphoresis. - Related Data Home Medications Medication Instructions Recorded Confirmed Furosemide [Lasix] 20 mg PO DAILY 10/20/14 10/14/20 Omeprazole [PriLOSEC] 20 mg PO DAILY 10/20/14 10/14/20 glyBURIDE [Glyburide] 2.5 mg PO DAILY 10/20/14 10/14/20 Loratadine 10 mg PO DAILY 10/14/20 10/14/20 amLODIPine [Norvasc] 10 mg PO DAILY 10/14/20 10/14/20 Previous Rx's Medication Instructions Recorded Aspirin 81 mg PO DAILY chew 10/17/20 Atorvastatin [Lipitor] 40 mg PO HS #30 tab 10/17/20 Cyanocobalamin [Vitamin B-12] 500 mcg PO DAILY #30 tab 10/17/20 Famotidine [Pepcid] 20 mg PO BID #60 tablet 10/17/20 Lisinopril-Hctz 10-12.5 mg 1 tab PO HS #30 tab 10/17/20 [Zestoretic 10-12.5] Warfarin Sodium 4 mg PO DAILY #0 10/17/20 hydrALAZINE HCL 50 mg PO TID #90 tab 10/17/20 Allergies Allergy/AdvReac Type Severity Reaction Status Date / Time Penicillins Allergy Rash/Hives Verified 10/03/23 13:37 Review of Systems ROS Statement: Those systems with pertinent positive or pertinent negative responses have been documented in the HPI. ROS Other: All systems not noted in ROS Statement are negative. Past Medical History Past Medical History: Atrial Fibrillation, Cancer, Diabetes Mellitus, GERD/Reflux, Hypertension, Osteoarthritis (OA) Additional Past Medical History / Comment(s): breast ca lymph nodes removal on rt and radiation 10 years ago History of Any Multi-Drug Resistant Organisms: None Reported Past Surgical History: Appendectomy, Back Surgery, Breast Surgery, Joint Replacement, Orthopedic Surgery Additional Past Surgical History / Comment(s): left knee x4, rt knee arthroscopy, bilat shoulders rotator cuffs, back fusion 35years ago Past Anesthesia/Blood Transfusion Reactions: Postoperative Nausea & Vomiting (PONV) Past Psychological History: Anxiety Smoking Status: Former smoker Past Alcohol Use History: Rare Past Drug Use History: None Reported - Past Family History Father Family Medical History: Coronary Artery Disease (CAD), CVA/TIA, Diabetes Mellitus Mother Family Medical History: Coronary Artery Disease (CAD), Hyperlipidemia, Hypertension, Renal Disease General Exam Limitations: no limitations General appearance: alert, in no apparent distress Head exam: Present: atraumatic, normocephalic Eye exam: Present: normal appearance, PERRL ENT exam: Present: normal exam Neck exam: Present: normal inspection. Absent: tenderness, meningismus Respiratory exam: Present: normal lung sounds bilaterally. Absent: respiratory distress, wheezes Cardiovascular Exam: Present: regular rate, normal rhythm GI/Abdominal exam: Present: soft. Absent: distended, tenderness, guarding Extremities exam: Present: normal inspection, normal capillary refill Neurological exam: Present: alert, oriented X3, CN II-XII intact. Absent: motor sensory deficit Psychiatric exam: Present: normal affect, normal mood Skin exam: Present: warm, dry, intact. Absent: cyanosis, diaphoretic Course Vital Signs 10/03/23 13:35 Temperature 98.3 F Pulse Rate 80 Respiratory 20 Rate Blood Pressure 146/69 O2 Sat by Pulse 94 L Oximetry Medical Decision Making - Medical Decision Making Was pt. sent in by a medical professional or institution (, PA, GRADALL OPERATOR, urgent care, hospital, or halfway...) When possible be specific @ -No Did you speak to anyone other than the patient for history (EMS, parent, family, police, friend...)? What history was obtained from this source @ -No Did you review nursing and triage notes (agree or disagree)? Why? @ -I reviewed and agree with nursing and triage notes Were old charts reviewed (outside hosp., previous admission, EMS record, old EKG, old radiological studies, urgent care reports/EKG's, halfway records)? Report findings @ -No old charts were reviewed Differential Diagnosis (chest pain, altered mental status, abdominal pain women, abdominal pain men, vaginal bleeding, weakness, fever, dyspnea, syncope, headache, dizziness, GI bleed, back pain, seizure, CVA, palpatations, mental health, musculoskeletal)? @ -Not applicable EKG interpreted by me (3pts min.). @EKG ventricular paced rhythm rate of 76, QRS duration 118, QTc [address] segment elevation. X-rays interpreted by me (1pt min.). @ -None done CT interpreted by me (1pt min.). @ -None done U/S interpreted by me (1pt. min.). @ -None done What testing was considered but not performed or refused? (CT, X-rays, U/S, labs)? Why? @ -None What meds were considered but not given or refused? Why? @ -None Did you discuss the management of the patient with other professionals (professionals i.e. , PA, GRADALL OPERATOR, lab, RT, psych nurse, aids social worker, connie scratcher, teacher, chief environmental commitment officer, child support case officer)? Give summary @ -Dr. Gerardo will admit Was smoking cessation discussed for >3mins.? @ -No Was critical care preformed (if so, how long)? @ -No Were there social determinants of health that impacted care today? How? (Homelessness, low income, unemployed, alcoholism, drug addiction, transportation, low edu. Level, literacy, decrease access to med. care, retirement, rehab)? @ -No Was there de-escalation of care discussed even if they declined (Discuss DNR or withdrawal of care, Hospice)? DNR status @ -No What co-morbidities impacted this encounter? (DM, HTN, Smoking, COPD, CAD, Cancer, CVA, ARF, Chemo, Hep., AIDS, mental health diagnosis, sleep apnea, morbid obesity)? @hypertension atrial fibrillation Was patient admitted / discharged? Hospital course, mention meds given and route, prescriptions, significant lab abnormalities, going to OR and other pertinent info. @ -87-year-old female presenting for evaluation of chest pain and shortness of breath. Patient is in paced rhythm. Vital signs are stable. She has normal CBC, elevated INR at 3.6. Elevated blood glucose and a magnesium of 1.3 which is replaced. Her initial troponin is 0.023. She will be kept in observation for serial cardiac enzymes, telemetry, cardiology consultation. Undiagnosed new problem with uncertain prognosis? @ -No Drug Therapy requiring intensive monitoring for toxicity (Heparin, Nitro, Insulin, Cardizem)? @ -No Were any procedures done? @ -No Diagnosis/symptom? @ CHest pain Acute, or Chronic, or Acute on Chronic? @ -[acute Uncomplicated (without systemic symptoms) or Complicated (systemic symptoms)? @ -Default Side effects of treatment? @ -No Exacerbation, Progression, or Severe Exacerbation? @ -No Poses a threat to life or bodily function? How? (Chest pain, [place], [place], pneumonia, PE, COPD, DKA, ARF, appy, cholecystitis, CVA, Diverticulitis, Homicidal, Suicidal, threat to staff... and all critical care pts) @ -[yes, ACS - Lab Data Result diagrams: 10/03/23 13:48 10/03/23 13:48 Lab Results 10/03/23 10/03/23 10/03/23 Range/Units 13:48 13:48 13:48 WBC 5.7 (3.8-10.6) k/uL RBC 4.14 (3.80-5.40) m/uL Hgb 13.4 (11.4-16.0) gm/dL Hct 41.9 (34.0-46.0) % MCV 101.1 H (80.0-100.0) fL MCH 32.5 (25.0-35.0) pg MCHC 32.1 (31.0-37.0) g/dL RDW 12.9 (11.5-15.5) % Plt Count 238 (150-450) k/uL MPV 9.1 Neutrophils % 63 % Lymphocytes % 28 % Monocytes % 6 % Eosinophils % 1 % Basophils % 1 % Neutrophils # 3.6 (1.3-7.7) k/uL Lymphocytes # 1.6 (1.0-4.8) k/uL Monocytes # 0.3 (0-1.0) k/uL Eosinophils # 0.1 (0-0.7) k/uL Basophils # 0.0 (0-0.2) k/uL PT 35.7 H (10.0-12.5) sec INR 3.6 H (<1.2) APTT 37.5 H (22.0-30.0) sec Sodium 142 (137-145) mmol/L Potassium 4.1 (3.5-5.1) mmol/L Chloride 112 H (98-107) mmol/L Carbon Dioxide 21 L (22-30) mmol/L Anion Gap 9 mmol/L BUN 24 H (7-17) mg/dL Creatinine 0.97 (0.52-1.04) mg/dL Est GFR (CKD-EPI)AfAm 61 (>60 ml/min/1.73 sqM) Est GFR (CKD-EPI)NonAf 53 (>60 ml/min/1.73 sqM) Glucose 256 H (74-99) mg/dL Calcium 9.9 (8.4-10.2) mg/dL Magnesium 1.3 L (1.6-2.3) mg/dL Total Bilirubin 0.7 (0.2-1.3) mg/dL AST 24 (14-36) U/L ALT 19 (4-34) U/L Alkaline Phosphatase 108 (38-126) U/L Troponin I (0.000-0.034) ng/mL Total Protein 7.4 (6.3-8.2) g/dL Albumin 4.5 (3.5-5.0) g/dL 10/03/23 Range/Units 13:48 WBC (3.8-10.6) k/uL RBC (3.80-5.40) m/uL Hgb (11.4-16.0) gm/dL Hct (34.0-46.0) % MCV (80.0-100.0) fL MCH (25.0-35.0) pg MCHC (31.0-37.0) g/dL RDW (11.5-15.5) % Plt Count (150-450) k/uL MPV Neutrophils % % Lymphocytes % % Monocytes % % Eosinophils % % Basophils % % Neutrophils # (1.3-7.7) k/uL Lymphocytes # (1.0-4.8) k/uL Monocytes # (0-1.0) k/uL Eosinophils # (0-0.7) k/uL Basophils # (0-0.2) k/uL PT (10.0-12.5) sec INR (<1.2) APTT (22.0-30.0) sec Sodium (137-145) mmol/L Potassium (3.5-5.1) mmol/L Chloride (98-107) mmol/L Carbon Dioxide (22-30) mmol/L Anion Gap mmol/L BUN (7-17) mg/dL Creatinine (0.52-1.04) mg/dL Est GFR (CKD-EPI)AfAm (>60 ml/min/1.73 sqM) Est GFR (CKD-EPI)NonAf (>60 ml/min/1.73 sqM) Glucose (74-99) mg/dL Calcium (8.4-10.2) mg/dL Magnesium (1.6-2.3) mg/dL Total Bilirubin (0.2-1.3) mg/dL AST (14-36) U/L ALT (4-34) U/L Alkaline Phosphatase (38-126) U/L Troponin I 0.023 (0.000-0.034) ng/mL Total Protein (6.3-8.2) g/dL Albumin (3.5-5.0) g/dL Disposition Clinical Impression: Chest pain Disposition: ADMITTED IP TO THIS HOSP Condition: Stable Is patient prescribed a controlled substance at d/c from ED?: No Referrals: Mary Vallecillo MD [Primary Care Provider] - 1-2 days Time of Disposition: 16:32
[2023-10-03] MEDS ORDERED: NALOXONE 0.4 MG/ML 1 ML VIAL IV PRN (16:27)
[2023-10-03] MEDS ORDERED: ACETAMINOPHEN TAB 325 MG TAB PO PRN (16:27)
[2023-10-03] MEDS ORDERED: NON FORMULARY DRUG (Warfarin Sodium [Warfarin Sodium] 4 MG Tablet) PO SCH (21:00)
--- NOTE | 2023-10-03 21:05 | CT ---
EXAMINATION TYPE: CT angio chest CT DLP: 499 mGycm, Automated exposure control for dose reduction was used. DATE OF EXAM: 10/03/2023 8:51 PM COMPARISON: Chest radiograph from same day. CLINICAL INDICATION:Female, 87 years old with history of poss aortic dissection; TECHNIQUE/CONTRAST: CTA scan of the thorax is performed with IV Contrast, patient injected with 80 cc of Isovue 370, MIP images are created and reviewed these are created on a separate workstation.. FINDINGS: Pulmonary Artery: There is no evidence for a filling defect within the pulmonary vasculature to sugge st acute pulmonary embolism. The pulmonary artery is of normal size. Lungs/Pleura: No evidence of focal consolidation, pleural effusion or pneumothorax. Airway: Large airways are patent. Heart: The heart is mildly enlarged for size. Cardiac conduction leads terminating in the right ventr icle. Mitral valve annular cusp patient's. Vasculature: No evidence of intimal flap to suggest dissection. No aneurysm identified. Scattered ath erosclerotic disease. Mediastinum: No gross evidence of adenopathy. Musculoskeletal: Moderate degenerative disc disease changes are present throughout the thoracolumbar spine. Soft Tissues/lymph nodes: Right breast mass with calcifications measuring 37 x 25 mm. Right breast sk in thickening measuring up to 11 mm. Lower neck: No significant findings. Upper Abdomen: Scattered calcified ramus. IMPRESSION: 1. No evidence of pulmonary embolism or aortic dissection. 2. Mild cardiomegaly
[2023-10-03] MEDS: ATORVASTATIN 40 MG TAB PO SCH (21:09)
[2023-10-03] MEDS: FUROSEMIDE 20 MG TAB PO SCH (21:09)
[2023-10-03] MEDS: lisinopriL 20 MG TAB PO SCH (21:09)
--- NOTE | 2023-10-03 21:32 | P.HPIM ---
History of Present Illness H&P Date: 10/03/23 Chief Complaint: Chest pain shortness of breath This is a pleasant 87-year-old patient of Dr. Mary Vallecillo. Chronic stable medical conditions include atrial fibrillation, diabetes, GERD, hypertension, osteoarthritis. At her baseline uses a cane and a walker. Patient presents after this afternoon patient started feeling bit short of breath. Having chest pressure. The pain was between her shoulder blades. No other radiation. Chest felt tight. Short of breath on minimal exertion. When I saw the patient I decided to order a stat CTA to rule out an aortic dissecti on. It was negative for the same. Review of systems: GEN.: Tired EYES: None HEENT: None NECK: None RESPIRATORY: As above CARDIOVASCULAR: As above GASTROINTESTINAL: None GENITOURINARY: None MUSCULOSKELETAL: Joint pains LYMPHATICS: None HEMATOLOGICAL: None PSYCHIATRY: None NEUROLOGICAL: Uses a cane and a walker Past medical history to include: Atrial fibrillation, diabetes, GERD, hypertension, osteomyelitis, breast cancer with lymph nodes removed on the right and radiation 10 years ago, anxiety Social history: Alcohol rarely. son at home. Does use a cane and a walker Physical examination: VITAL SIGNS: 98.3, 69, 18, 156 x 65, 93% room air GENERAL: Laying in bed, awake, EYES: Pupils equal. Conjunctiva normal. NECK: JVD not raised; masses not palpable. HEART: First and second heart sounds are normal; no edema. LUNGS: Respiratory rate normal; clear to auscultation. ABDOMEN: Soft, nontender, liver spleen not palpable, no masses palpable. PSYCH: Alert and oriented x3; mood and affect anxious MUSCULAR skeletal: Evidence of OA NEUROLOGICAL: Cranial nerves grossly intact; no facial asymmetry, power and sensation grossly intact. Chronic slow stuttering of the speech LYMPHATICS: No lymph nodes palpable in the axilla and neck INVESTIGATIONS, reviewed in the clinical context: October 03, 2023: White count 5.7 hemoglobin 13.4 platelets 238 INR 3.6 sodium 142 potassium 4.1 BUN 24 creatinine 0.97 Troponin I 0.023, 0.033 EKG tracing personally reviewed by me-ventricle paced rhythm. CT angio chest: Negative for PE noted dissection Chest x-ray film personally reviewed by me-some cardiomegaly. Temple clear Assessment and plan: -Patient presents this afternoon having chest pressure. The shoulder blades and shortness of breath. Feeling tired. EKG is a paced rhythm. Nearly normal troponin. This could be unstable angina Cardiology consulted PE noted dissection ruled out -Obesity BMI 33.7 Weight loss measures and follow with PCP -Secondary pulmonary hypertension Follow clinically -Essential hypertension Prinivil, hydralazine, amlodipine -Diabetes mellitus type 2, diet controlled -Persistent atrial fibrillation, rate controlled On Coumadin -Has a pacemaker -Coumadin monitoring Follow INR -GERD Continue with Prilosec -Hyperlipidemia Lipitor 40 mg. 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 at home -Full code Past Medical History Past Medical History: Atrial Fibrillation, Cancer, Diabetes Mellitus, GERD/Reflux, Hypertension, Osteoarthritis (OA) Additional Past Medical History / Comment(s): breast ca lymph nodes removal on rt and radiation 10 years ago History of Any Multi-Drug Resistant Organisms: None Reported Past Surgical History: Appendectomy, Back Surgery, Breast Surgery, Joint Replacement, Orthopedic Surgery Additional Past Surgical History / Comment(s): left knee x4, rt knee arthroscopy, bilat shoulders rotator cuffs, back fusion 35years ago Past Anesthesia/Blood Transfusion Reactions: Postoperative Nausea & Vomiting (PONV) Past Psychological History: Anxiety Smoking Status: Former smoker Past Alcohol Use History: Rare Past Drug Use History: None Reported - Past Family History Father Family Medical History: Coronary Artery Disease (CAD), CVA/TIA, Diabetes Mellitus Mother Family Medical History: Coronary Artery Disease (CAD), Hyperlipidemia, Hypertension, Renal Disease Medications and Allergies Home Medications Medication Instructions Recorded Confirmed Type Furosemide [Lasix] 20 mg PO BID 10/20/14 10/03/23 History Omeprazole [PriLOSEC] 20 mg PO DAILY 10/20/14 10/03/23 History amLODIPine [Norvasc] 10 mg PO DAILY 10/14/20 10/03/23 History Atorvastatin [Lipitor] 40 mg PO HS #30 tab 10/17/20 10/03/23 Rx Cholecalciferol [Vitamin D3 (25 25 mcg PO DAILY 10/03/23 10/03/23 History Mcg = 1000 Iu)] Potassium Chloride ER [K-Dur 10] 10 meq PO DAILY 10/03/23 10/03/23 History Super B Complex 1 tab PO DAILY 10/03/23 10/03/23 History Warfarin Sodium 4 mg PO HS 10/03/23 10/03/23 History hydrALAZINE HCL [Apresoline] 100 mg PO TID 10/03/23 10/03/23 History lisinopriL [Prinivil] 20 mg PO BID 10/03/23 10/03/23 History Allergies Allergy/AdvReac Type Severity Reaction Status Date / Time Penicillins Allergy Rash/Hives Verified 10/03/23 17:54 Physical Exam Vitals: Vital Signs Temp Pulse Resp BP Pulse Ox 10/03/23 21:00 69 18 93 L 10/03/23 18:00 70 17 156/65 94 L 10/03/23 13:35 98.3 F 80 20 146/69 94 L Intake and Output 10/03/23 10/03/23 10/03/23 06:59 14:59 22:59 Other: Weight 94.801 kg Results CBC & Chem 7: 10/03/23 13:48 10/03/23 13:48 Labs: Abnormal Lab Results - Last 24 Hours (Table) 10/03/23 10/03/23 10/03/23 Range/Units 13:48 13:48 13:48 MCV 101.1 H (80.0-100.0) fL PT 35.7 H (10.0-12.5) sec INR 3.6 H (<1.2) APTT 37.5 H (22.0-30.0) sec Chloride 112 H (98-107) mmol/L Carbon Dioxide 21 L (22-30) mmol/L BUN 24 H (7-17) mg/dL Glucose 256 H (74-99) mg/dL Magnesium 1.3 L (1.6-2.3) mg/dL
[2023-10-03] MEDS: hydrALAZINE HCL 50 MG TAB PO SCH (21:54)
[2023-10-04] MEDS: PANTOPRAZOLE 40 MG TABLET PO SCH (07:51)
[2023-10-04] MEDS: POTASSIUM CHLORIDE ER 10 MEQ TAB.ER.PRT PO SCH (07:52)
[2023-10-04] MEDS: amLODIPine 10 MG TAB PO SCH (07:52)
[2023-10-04 08:29] LABS: INR 2.5 (<1.2)
[2023-10-04] MEDS ORDERED: HEPARIN SODIUM 1,000 UN/ML (10ML VL) IV PRN (09:03)
[2023-10-04] MEDS: HEPARIN SOD,PORK IN 0.45% NACL 25,000 UNIT in 0.45% NACL 1 250ML.BAG IV SCH (09:12)
--- NOTE | 2023-10-04 10:21 | P.CRDCN ---
History of Present Illness Consult date: 10/04/23 Chief complaint: Chest pain and back pain History of present illness: The patient is a pleasant 87-year-old female patient with a past medical history significant for diabetes and hypertension and dyslipidemia and history of permanent pacemaker and also questionable history of stroke. She presented to the emergency department complaining of chest discomfort and back discomfort. She was in her usual state of health till [place] and started experiencing discomfort in the middle of the chest as dull feeling with radiation to the back associated with shortness of breath and sweating but no dizziness or lightheadedness and no presyncope or syncope. She presented to the emergency department where she underwent further evaluation including troponin and she was ruled in for acute coronary syndrome. The EKG showed underlying atrial fibrillation with ventricular paced rhythm. She underwent also CT scan of the chest and that showed no evidence of pulmonary embolism. Currently she is chest pain-free. I discussed the finding with the patient in details including the finding of abnormal troponin indicating acute coronary syndrome and the need to undergo a heart catheterization and she would like to think about it. Meanwhile she is on Coumadin for atrial fibrillation which is going to hold at this point and start the patient on heparin IV. Obtain an echocardiogram with Doppler. Consider proceeding with coronary angiogram. The examination is remarkable for stable vital signs with regular rhythm and systolic murmur at the right upper sternal border and clear breathing sounds bilaterally and no edema was noted. Assessment Acute coronary syndrome Permanent pacemaker Underlying atrial fibrillation/permanent atrial fibrillation Multiple comorbid conditions including diabetes and hypertension and dyslipidemia Plan DC Coumadin and start the patient on heparin Obtain an echo for risk stratification Consider starting the patient on beta-andrea Continue statin Proceed with coronary angiogram Follow-up with the patient Past Medical History Past Medical History: Atrial Fibrillation, Cancer, Diabetes Mellitus, GERD/Reflux, Hypertension, Osteoarthritis (OA) Additional Past Medical History / Comment(s): breast ca lymph nodes removal on rt and radiation 10 years ago History of Any Multi-Drug Resistant Organisms: None Reported Past Surgical History: Appendectomy, Back Surgery, Breast Surgery, Joint Replacement, Orthopedic Surgery Additional Past Surgical History / Comment(s): left knee x4, rt knee arthroscopy, bilat shoulders rotator cuffs, back fusion 35years ago Past Anesthesia/Blood Transfusion Reactions: Postoperative Nausea & Vomiting (PONV) Past Psychological History: Anxiety Smoking Status: Former smoker Past Alcohol Use History: Rare Past Drug Use History: None Reported - Past Family History Father Family Medical History: Coronary Artery Disease (CAD), CVA/TIA, Diabetes Mellitus Mother Family Medical History: Coronary Artery Disease (CAD), Hyperlipidemia, Hypertension, Renal Disease Medications and Allergies Home Medications Medication Instructions Recorded Confirmed Type Furosemide [Lasix] 20 mg PO BID 10/20/14 10/03/23 History Omeprazole [PriLOSEC] 20 mg PO DAILY 10/20/14 10/03/23 History amLODIPine [Norvasc] 10 mg PO DAILY 10/14/20 10/03/23 History Atorvastatin [Lipitor] 40 mg PO HS #30 tab 10/17/20 10/03/23 Rx Cholecalciferol [Vitamin D3 (25 25 mcg PO DAILY 10/03/23 10/03/23 History Mcg = 1000 Iu)] Potassium Chloride ER [K-Dur 10] 10 meq PO DAILY 10/03/23 10/03/23 History Super B Complex 1 tab PO DAILY 10/03/23 10/03/23 History Warfarin Sodium 4 mg PO HS 10/03/23 10/03/23 History hydrALAZINE HCL [Apresoline] 100 mg PO TID 10/03/23 10/03/23 History lisinopriL [Prinivil] 20 mg PO BID 10/03/23 10/03/23 History Allergies Allergy/AdvReac Type Severity Reaction Status Date / Time Penicillins Allergy Rash/Hives Verified 10/03/23 17:54 Physical Exam Vitals: Vital Signs Temp Pulse Resp BP Pulse Ox 10/04/23 07:46 70 17 126/106 94 L 10/04/23 05:53 70 18 150/80 92 L 10/04/23 00:51 70 16 123/57 95 10/03/23 21:00 69 18 93 L 10/03/23 18:00 70 17 156/65 94 L 10/03/23 13:35 98.3 F 80 20 146/69 94 L Results 10/03/23 13:48 10/03/23 13:48 Cardiac Enzymes 10/03/23 10/03/23 10/03/23 Range/Units 13:48 13:48 17:57 AST 24 (14-36) U/L Troponin I 0.023 0.033 (0.000-0.034) ng/mL 10/03/23 Range/Units 20:48 AST (14-36) U/L Troponin I 0.039 H* (0.000-0.034) ng/mL Coagulation 10/03/23 10/04/23 Range/Units 13:48 07:44 PT 35.7 H 25.0 H (10.0-12.5) sec APTT 37.5 H (22.0-30.0) sec CBC 10/03/23 Range/Units 13:48 WBC 5.7 (3.8-10.6) k/uL RBC 4.14 (3.80-5.40) m/uL Hgb 13.4 (11.4-16.0) gm/dL Hct 41.9 (34.0-46.0) % Plt Count 238 (150-450) k/uL Comprehensive Metabolic Panel 10/03/23 Range/Units 13:48 Sodium 142 (137-145) mmol/L Potassium 4.1 (3.5-5.1) mmol/L Chloride 112 H (98-107) mmol/L Carbon Dioxide 21 L (22-30) mmol/L BUN 24 H (7-17) mg/dL Creatinine 0.97 (0.52-1.04) mg/dL Glucose 256 H (74-99) mg/dL Calcium 9.9 (8.4-10.2) mg/dL AST 24 (14-36) U/L ALT 19 (4-34) U/L Alkaline Phosphatase 108 (38-126) U/L Total Protein 7.4 (6.3-8.2) g/dL Albumin 4.5 (3.5-5.0) g/dL Current Medications Generic Name Dose Route Start Last Admin Trade Name Freq PRN Reason Stop Dose Admin Acetaminophen 650 mg 10/03/23 16:27 Acetaminophen Tab 325 Mg Tab PO Q6HR PRN Mild Pain or Fever > 100.5 Amlodipine Besylate 10 mg 10/04/23 09:00 10/04/23 07:52 Amlodipine 10 Mg Tab PO 10 mg DAILY URSULA Administration Atorvastatin Calcium 40 mg 10/03/23 21:00 10/03/23 21:09 Atorvastatin 40 Mg Tab PO 40 mg HS URSULA Administration Furosemide 20 mg 10/03/23 21:00 10/04/23 07:52 Furosemide 20 Mg Tab PO 20 mg BID URSULA Administration Heparin Sodium (Porcine) 0 unit 10/04/23 09:03 Heparin Sodium 1,000 Un/Ml (10ml Vl) IV PER PROTOCOL PRN Low PTT Protocol Hydralazine HCl 100 mg 10/03/23 22:00 10/04/23 07:52 Hydralazine Hcl 50 Mg Tab PO 100 mg TID URSULA Administration Heparin Sodium/Sodium Chloride 250 mls @ 10 mls/hr 10/04/23 09:15 10/04/23 09:12 25,000 unit/ Sodium Chloride IV Not Given .Q24H URSULA Protocol 10.548 UNITS/KG/HR Lisinopril 20 mg 10/03/23 21:00 10/03/23 21:09 Lisinopril 20 Mg Tab PO 20 mg BID URSULA Administration Miscellaneous Information 1 each 10/03/23 18:30 Warfarin Per Pharmacy MISCELLANE DIRECTED PRN Per Protocol Protocol Naloxone HCl 0.2 mg 10/03/23 16:27 Naloxone 0.4 Mg/Ml 1 Ml Vial IV Q2M PRN Opioid Reversal Pantoprazole Sodium 20 mg 10/04/23 07:30 10/04/23 07:51 Pantoprazole 40 Mg Tablet PO 20 mg DAILY@0730 URSULA Administration Potassium Chloride 10 meq 10/04/23 09:00 10/04/23 07:52 Potassium Chloride Er 10 Meq Tab.Er.Prt PO 10 meq DAILY URSULA Administration 10/03/23 13:48 10/03/23 13:48
[2023-10-04] MEDS: WARFARIN 3 MG TAB PO ONE (15:46)
[2023-10-04] MEDS: WARFARIN 0.5 MG TAB PO ONE (15:46)
[2023-10-04 16:32] LABS: Glucose,Whole Blood 273 mg/dL (70-110)
[2023-10-04] MEDS ORDERED: DEXTROSE 50% SYRINGE 50 ML IVP PRN ×2 (17:04)
[2023-10-04] MEDS: INSULIN ASPART (NovoLOG) 100 UNIT/ML VIAL SQ SCH (17:20)
--- NOTE | 2023-10-04 19:31 | P.PN ---
Progress Note - Text Progress Note Date: 10/04/23 Chief Complaint: Chest pain shortness of breath This is a pleasant 87-year-old patient of Dr. Mary Vallecillo. Chronic stable medical conditions include atrial fibrillation, diabetes, GERD, hypertension, osteoarthritis. At her baseline uses a cane and a walker. Patient presents after this afternoon patient started feeling bit short of breath. Having chest pressure. The pain was between her shoulder blades. No other radiation. Chest felt tight. Short of breath on minimal exertion. When I saw the patient I decided to order a stat CTA to rule out an aortic dissection. It was negative for the same. October 03: Seen by cardiology earlier today. Coumadin held. Switch to IV heparin. Plan for cardiac catheterization tomorrow. Spoke to patient daughter at the bedside. Chest discomfort better. Active Medications Acetaminophen (Acetaminophen Tab 325 Mg Tab) 650 mg PO Q6HR PRN PRN Reason: Mild Pain or Fever > 100.5 Amlodipine Besylate (Amlodipine 10 Mg Tab) 10 mg PO DAILY [facility] Last Admin: 10/04/23 07:52 Dose: 10 mg Atorvastatin Calcium (Atorvastatin 40 Mg Tab) 40 mg PO HS [facility] Last Admin: 10/03/23 21:09 Dose: 40 mg Dextrose/Water (Dextrose 50% Syringe 50 Ml) 25 ml IVP PER PROTOCOL PRN; Protocol PRN Reason: Hypoglycemia Dextrose/Water (Dextrose 50% Syringe 50 Ml) 50 ml IVP PER PROTOCOL PRN; Protocol PRN Reason: Hypoglycemia Furosemide (Furosemide 20 Mg Tab) 20 mg PO BID [facility] Last Admin: 10/04/23 07:52 Dose: 20 mg Heparin Sodium (Porcine) (Heparin Sodium 1,000 Un/Ml (10ml Vl)) 0 unit IV PER PROTOCOL PRN; Protocol PRN Reason: Low PTT Hydralazine HCl (Hydralazine Hcl 50 Mg Tab) 100 mg PO TID [facility] Last Admin: 10/04/23 17:20 Dose: 100 mg Heparin Sodium/Sodium Chloride (25,000 unit/ Sodium Chloride) 250 mls @ 10 mls/hr IV .Q24H [facility]; Protocol Last Titration: 10/04/23 17:55 Dose: 13.548 units/kg/hr, 12.844 mls/hr Insulin Aspart (Insulin Aspart (Novolog) 100 Unit/Ml Vial) 0 unit SQ ACHS [facility]; Protocol Last Admin: 10/04/23 17:20 Dose: 6 unit Lisinopril (Lisinopril 20 Mg Tab) 20 mg PO BID [facility] Last Admin: 10/03/23 21:09 Dose: 20 mg Metoprolol Tartrate (Metoprolol Tartrate 12.5 Mg Tab) 12.5 mg PO BID [facility] Miscellaneous Information (Warfarin Per Pharmacy) 1 each MISCELLANE DIRECTED PRN; Protocol PRN Reason: Per Protocol Naloxone HCl (Naloxone 0.4 Mg/Ml 1 Ml Vial) 0.2 mg IV Q2M PRN PRN Reason: Opioid Reversal Pantoprazole Sodium (Pantoprazole 40 Mg Tablet) 20 mg PO DAILY@0730 [facility] Last Admin: 10/04/23 07:51 Dose: 20 mg Potassium Chloride (Potassium Chloride Er 10 Meq Tab.Er.Prt) 10 meq PO DAILY [facility] Last Admin: 10/04/23 07:52 Dose: 10 meq Past medical history to include: Atrial fibrillation, diabetes, GERD, hypertension, osteomyelitis, breast cancer with lymph nodes removed on the right and radiation 10 years ago, anxiety Social history: Alcohol rarely. son at home. Does use a cane and a walker Physical examination: VITAL SIGNS: Afebrile, 70, 17, 130/60, 95% room air GENERAL: In a recliner EYES: Pupils equal. Conjunctiva normal. NECK: JVD not raised; masses not palpable. HEART: First and second heart sounds are normal; no edema. LUNGS: Respiratory rate normal; clear to auscultation. ABDOMEN: Soft, nontender, liver spleen not palpable, no masses palpable. PSYCH: Alert and oriented x3; mood and affect anxious MUSCULAR skeletal: Evidence of OA NEUROLOGICAL: Cranial nerves grossly intact; no facial asymmetry, power and sensation grossly intact. Chronic slow stuttering of the speech INVESTIGATIONS, reviewed in the clinical context: October 03: INR 2.5 October 03, 2023: White count 5.7 hemoglobin 13.4 platelets 238 INR 3.6 sodium 142 potassium 4.1 BUN 24 creatinine 0.97 Troponin I 0.023, 0.033 EKG tracing personally reviewed by me-ventricle paced rhythm. CT angio chest: Negative for PE noted dissection Chest x-ray film personally reviewed by me-some cardiomegaly. Temple clear Assessment and plan: -Patient presents this afternoon having chest pressure. The shoulder blades and shortness of breath. Feeling tired. EKG is a paced rhythm. Nearly normal troponin. This could be unstable angina Cardiology following For cardiac catheterization tomorrow Coumadin held. Switch to IV heparin -IV heparin monitoring Follow PTT -Obesity BMI 33.7 Weight loss measures and follow with PCP -Secondary pulmonary hypertension Follow clinically -Essential hypertension Prinivil, hydralazine, amlodipine -Diabetes mellitus type 2, diet controlled -Persistent atrial fibrillation, rate controlled On Coumadin -Has a pacemaker -Coumadin monitoring Follow INR -GERD Continue with Prilosec -Hyperlipidemia Lipitor 40 mg. 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 at home -Full code Discussed with daughter and patient. Past Medical History Past Medical History: Atrial Fibrillation, Cancer, Diabetes Mellitus, GERD/Reflux, Hypertension, Osteoarthritis (OA) Additional Past Medical History / Comment(s): breast ca lymph nodes removal on rt and radiation 10 years ago History of Any Multi-Drug Resistant Organisms: None Reported Past Surgical History: Appendectomy, Back Surgery, Breast Surgery, Joint Replacement, Orthopedic Surgery Additional Past Surgical History / Comment(s): left knee x4, rt knee arthroscopy, bilat shoulders rotator cuffs, back fusion 35years ago Past Anesthesia/Blood Transfusion Reactions: Postoperative Nausea & Vomiting (PONV) Past Psychological History: Anxiety Smoking Status: Former smoker Past Alcohol Use History: Rare Past Drug Use History: None Reported
[2023-10-04 20:04] LABS: Glucose,Whole Blood 192 mg/dL (70-110)
[2023-10-04] MEDS: METOPROLOL TARTRATE 12.5 MG TAB PO SCH (21:19)
[2023-10-04] MEDS: EMPTY BAG 1 BAG with SODIUM CHLORIDE 0.9% 1,000 ML IV ONE (21:25)
[2023-10-05 05:26] LABS: Glucose,Whole Blood 190 mg/dL (70-110)
[2023-10-05 07:42] LABS: Basophils % (A) 0 %; Eosinophils # (A) 0.1 k/uL (0-0.7); Eosinophils % (A) 2 %; HGB 11.9 gm/dL (11.4-16.0); Lymphocytes # (A) 1.7 k/uL (1.0-4.8); Lymphocytes % (A) 32 %; MCH 32.5 pg (25.0-35.0); MCHC 32.3 g/dL (31.0-37.0); MCV 100.6 fL (80.0-100.0); Mean Platelet Volume 9.6; Monocytes # (A) 0.4 k/uL (0-1.0); Monocytes % (A) 7 %; Neutrophils % (A) 56 %; Platelet Count 188 k/uL (150-450); RBC 3.67 m/uL (3.80-5.40); RDW 13.1 % (11.5-15.5); WBC 5.4 k/uL (3.8-10.6)
[2023-10-05 07:45] LABS: Prothrombin Time 20.4 sec (10.0-12.5)
[2023-10-05 08:38] LABS: African American GFR (CKD) 62 (>60 ml/min/1.73 sqM); Anion Gap 8 mmol/L; Blood Urea Nitrogen 26 mg/dL (7-17); Carbon Dioxide 21 mmol/L (22-30); Chloride 111 mmol/L (98-107); Glucose 190 mg/dL (74-99); Magnesium 1.5 mg/dL (1.6-2.3); Non-African American GFR(CKD) 54 (>60 ml/min/1.73 sqM); Sodium 140 mmol/L (137-145)
--- NOTE | 2023-10-05 09:20 | P.PN ---
Subjective Progress Note Date: 10/05/23 The patient is a pleasant 87-year-old female patient with a past medical history significant for diabetes and hypertension and dyslipidemia and history of permanent pacemaker and also questionable history of stroke. She presented to the emergency department complaining of chest discomfort and back discomfort. She was in her usual state of health till yesterday when she was at the [facility] and started experiencing discomfort in the middle of the chest as dull feeling with radiation to the back associated with shortness of breath and sweating but no dizziness or lightheadedness and no presyncope or syncope. She presented to the emergency department where she underwent further evaluation including t roponin and she was ruled in for acute coronary syndrome. The EKG showed underlying atrial fibrillation with ventricular paced rhythm. She underwent also CT scan of the chest and that showed no evidence of pulmonary embolism. Currently she is chest pain-free. I discussed the finding with the patient in details including the finding of abnormal troponin indicating acute coronary syndrome and the need to undergo a heart catheterization and she would like to think about it. Meanwhile she is on Coumadin for atrial fibrillation which is going to hold at this point and start the patient on heparin IV. Obtain an echocardiogram with Doppler. Consider proceeding with coronary angiogram. The examination is remarkable for stable vital signs with regular rhythm and systolic murmur at the right upper sternal border and clear breathing sounds bilaterally and no edema was noted. October 05, 2023 The patient was seen and evaluated this morning which she is asymptomatic and she is hemodynamically stable. Currently she is on heparin IV. She is also on beta-andrea and statin. Coumadin is on hold at this point. INR today is 2.0. We are going to give the patient some vitamin K IV and repeat the INR later on today. If her INR comes to 1.5 or below I would consider proceeding with coronary angiogram today otherwise need to be done in the next 24 to 48 hours once INR is down. The echo still pending. Examination is remarkable for stable vital signs with regular rate and rhythm and clear breathing sounds bilaterally and no edema was noted. Assessment Acute coronary syndrome Permanent pacemaker Underlying atrial fibrillation/permanent atrial fibrillation Multiple comorbid conditions including diabetes and hypertension and dyslipidemia Plan Continue the current medical regimen Continue holding Coumadin and checking the INR Follow-up on the echocardiogram Coronary angiogram once INR is down Objective - Vital Signs Vital signs: Vital Signs Temp 97.0 F L 10/04/23 20:00 Pulse 71 10/05/23 04:40 Resp 18 10/05/23 04:40 BP 145/75 10/05/23 04:40 Pulse Ox 95 10/05/23 04:40 FiO2 Intake & Output 10/04/23 10/05/23 10/05/23 18:59 06:59 18:59 Intake Total 190.5 80.703 Balance 190.5 80.703 Weight 94.801 kg Intake: Intake, IV Titration 72.5 80.703 Amount Heparin Sod,Pork in 0.45% 72.5 80.703 NaCl 25,000 unit In 0.45 % NaCl 1 250ml.bag @ 10. 548 UNITS/KG/HR 10 mls/hr IV .Q24H [facility] Rx#: [id number] Oral 118 Other: Voiding Method Toilet Toilet # Voids 2 - Labs CBC & Chem 7: 10/05/23 07:02 10/05/23 07:02 Labs: Abnormal Lab Results - Last 24 Hours (Table) 10/04/23 10/04/23 10/04/23 Range/Units 16:30 17:02 20:01 RBC (3.80-5.40) m/uL MCV (80.0-100.0) fL PT (10.0-12.5) sec INR (<1.2) APTT 33.8 H (22.0-30.0) sec Chloride (98-107) mmol/L Carbon Dioxide (22-30) mmol/L BUN (7-17) mg/dL Glucose (74-99) mg/dL POC Glucose (mg/dL) 273 H 192 H (70-110) mg/dL Magnesium (1.6-2.3) mg/dL 10/04/23 10/05/23 10/05/23 Range/Units 23:10 05:25 07:02 RBC 3.67 L (3.80-5.40) m/uL MCV 100.6 H (80.0-100.0) fL PT (10.0-12.5) sec INR (<1.2) APTT 136.7 H* (22.0-30.0) sec Chloride (98-107) mmol/L Carbon Dioxide (22-30) mmol/L BUN (7-17) mg/dL Glucose (74-99) mg/dL POC Glucose (mg/dL) 190 H (70-110) mg/dL Magnesium (1.6-2.3) mg/dL 10/05/23 10/05/23 Range/Units 07:02 07:02 RBC (3.80-5.40) m/uL MCV (80.0-100.0) fL PT 20.4 H (10.0-12.5) sec INR 2.0 H (<1.2) APTT (22.0-30.0) sec Chloride 111 H (98-107) mmol/L Carbon Dioxide 21 L (22-30) mmol/L BUN 26 H (7-17) mg/dL Glucose 190 H (74-99) mg/dL POC Glucose (mg/dL) (70-110) mg/dL Magnesium 1.5 L (1.6-2.3) mg/dL
[2023-10-05] MEDS: PHYTONADIONE 10 MG in SODIUM CHLORIDE 0.9% 50 ML IVPB STA (09:30)
[2023-10-05 11:33] LABS: Glucose,Whole Blood 157 mg/dL (70-110)
[2023-10-05 13:43] LABS: INR 1.5 (<1.2); Partial Thromboplastin Time 54.4 sec (22.0-30.0); Prothrombin Time 15.2 sec (10.0-12.5)
--- NOTE | 2023-10-05 14:03 | CA ---
Transthoracic Echo Report Name: Sue Cedillo Age: 87 Gender: F : 1935 Exam Date: 10/04/2023 16:08 Exam Location: [place] Echo Ht (in): 66 Wt (lb): 209 Ordering Physician: Ashu Santana MD ([id number]) Attending/Referring Phys: Music Agent Heidi Contreras RDCS Procedure CPT: Indications: ACS Cardiac Hx: Technical Quality: Technically difficult study Contrast 1: Definity Total Dose (mL): 2 Contrast 2: Total Dose (mL): MEASUREMENTS (Male / Female) Normal Values 2D ECHO LV Diastolic Diameter PLAX 3.6 cm 4.2 - 5.9 / 3.9 - 5.3 cm LV Systolic Diameter PLAX 2.5 cm IVS Diastolic Thickness 2.0 cm 0.6 - 1.0 / 0.6 - 0.9 cm LVPW Diastolic Thickness 2.0 cm 0.6 - 1.0 / 0.6 - 0.9 cm LV Relative Wall Thickness 1.1 RV Internal Dim ED PLAX 3.4 cm LA Volume 129.7 cm??? 18 - 58 / 22 - 52 cm??? LA Volume Index 60.7 cm???/m??? 16 - 28 cm???/m??? M-MODE Aortic Root Diameter MM 3.2 cm LA Systolic Diameter MM 5.5 cm LA Ao Ratio MM 1.7 AV Cusp Separation MM 2.0 cm DOPPLER AV Peak Velocity 81.4 cm/s AV Peak Gradient 2.7 mmHg AV Mean Velocity 49.9 cm/s AV Mean Gradient 1.2 mmHg AV Velocity Time Integral 13.9 cm LVOT Peak Velocity 31.4 cm/s LVOT Peak Gradient 0.4 mmHg LVOT Velocity Time Integral 12.5 cm MV Area PHT 2.3 cm??? Mitral E Point Velocity 84.2 cm/s Mitral A Point Velocity 2.0 cm/s Mitral E to A Ratio 42.9 MV Deceleration Time 323.4 ms MV E' Velocity 6.5 cm/s Mitral E to MV E' Ratio 12.9 TR Peak Velocity 310.0 cm/s TR Peak Gradient 38.4 mmHg Right Ventricular Systolic Press 42.7 mmHg FINDINGS Left Ventricle Severely increased left ventricular wall thickness. Left ventricular cavity size normal. No obvious regional wall motion abnormalities. Left ventricular ejection fraction is estimated at 50-55 %. Grade 2 diastolic dysfunction. Right Ventricle Mild right ventricular dilatation. Mild pulmonary hypertension. Prominent moderator band in right ventricle (normal variant). Right Atrium Right atrial dilatation. Left Atrium Severely increased left atrial volume. Moderately increased left atrial area. Mitral Valve Mitral valve not well visualized. No mitral stenosis. [id number] mitral regurgitation. Aortic Valve Trileaflet aortic valve. No aortic valve stenosis or regurgitation. Tricuspid Valve Structurally normal tricuspid valve. [id number] tricuspid regurgitation. Pulmonic Valve Structurally normal pulmonic valve. Trace pulmonic regurgitation. Pericardium No pericardial effusion. Aorta Normal size aortic root and proximal ascending aorta. CONCLUSIONS Technically difficult study for interpretation Normal LV systolic function Poorly visualized intracardiac valves Previewed by: Dr. Ashu Santana MD (Electronically Signed) Final Date: 05 October 2023 14:02
--- NOTE | 2023-10-05 16:14 | P.PN ---
Progress Note - Text Progress Note Date: 10/05/23 Chief Complaint: Chest pain shortness of breath This is a pleasant 87-year-old patient of Dr. Mary Vallecillo. Chronic stable medical conditions include atrial fibrillation, diabetes, GERD, hypertension, osteoarthritis. At her baseline uses a cane and a walker. Patient presents after this afternoon patient started feeling bit short of breath. Having chest pressure. The pain was between her shoulder blades. No other radiation. Chest felt tight. Short of breath on minimal exertion. When I saw the patient I decided to order a stat CTA to rule out an aortic dissection. It was negative for the same. October 03: Seen by cardiology earlier today. Coumadin held. Switch to IV heparin. Plan for cardiac catheterization tomorrow. Spoke to patient daughter at the bedside. Chest discomfort better. October 04: INR 2.0. Remains on IV heparin. No chest pain. Pending cardiac catheterization depending on INR coming down. Sitting at the edge of the bed. Active Medications Acetaminophen (Acetaminophen Tab 325 Mg Tab) 650 mg PO Q6HR PRN PRN Reason: Mild Pain or Fever > 100.5 Amlodipine Besylate (Amlodipine 10 Mg Tab) 10 mg PO DAILY [facility] Last Admin: 10/05/23 09:43 Dose: 10 mg Atorvastatin Calcium (Atorvastatin 40 Mg Tab) 40 mg PO HS [facility] Last Admin: 10/04/23 21:20 Dose: 40 mg Dextrose/Water (Dextrose 50% Syringe 50 Ml) 25 ml IVP PER PROTOCOL PRN; Protocol PRN Reason: Hypoglycemia Dextrose/Water (Dextrose 50% Syringe 50 Ml) 50 ml IVP PER PROTOCOL PRN; Protocol PRN Reason: Hypoglycemia Furosemide (Furosemide 20 Mg Tab) 20 mg PO BID [facility] Last Admin: 10/05/23 09:43 Dose: 20 mg Heparin Sodium (Porcine) (Heparin Sodium 1,000 Un/Ml (10ml Vl)) 0 unit IV PER PROTOCOL PRN; Protocol PRN Reason: Low PTT Hydralazine HCl (Hydralazine Hcl 50 Mg Tab) 100 mg PO TID [facility] Last Admin: 10/05/23 09:43 Dose: 100 mg Heparin Sodium/Sodium Chloride (25,000 unit/ Sodium Chloride) 250 mls @ 10 mls/hr IV .Q24H [facility]; Protocol Last Titration: 10/05/23 01:18 Dose: 10.548 units/kg/hr, 10 mls/hr Insulin Aspart (Insulin Aspart (Novolog) 100 Unit/Ml Vial) 0 unit SQ ACHS [facility]; Protocol Last Admin: 10/05/23 11:56 Dose: Not Given Lisinopril (Lisinopril 20 Mg Tab) 20 mg PO BID [facility] Last Admin: 10/05/23 09:43 Dose: 20 mg Metoprolol Tartrate (Metoprolol Tartrate 12.5 Mg Tab) 12.5 mg PO BID [facility] Last Admin: 10/05/23 09:43 Dose: 12.5 mg Naloxone HCl (Naloxone 0.4 Mg/Ml 1 Ml Vial) 0.2 mg IV Q2M PRN PRN Reason: Opioid Reversal Pantoprazole Sodium (Pantoprazole 40 Mg Tablet) 20 mg PO DAILY@0730 [facility] Last Admin: 10/05/23 06:08 Dose: 20 mg Potassium Chloride (Potassium Chloride Er 10 Meq Tab.Er.Prt) 10 meq PO DAILY [facility] Last Admin: 10/05/23 09:43 Dose: 10 meq Past medical history to include: Atrial fibrillation, diabetes, GERD, hypertension, osteomyelitis, breast cancer with lymph nodes removed on the right and radiation 10 years ago, anxiety Social history: Alcohol rarely. son at home. Does use a cane and a walker Physical examination: VITAL SIGNS: 97.8, 75, 16, 138 x 64, 95% room air GENERAL: See the edge of the bed EYES: Pupils equal. Conjunctiva normal. NECK: JVD not raised; masses not palpable. HEART: First and second heart sounds are normal; no edema. LUNGS: Respiratory rate normal; clear to auscultation. ABDOMEN: Soft, nontender, liver spleen not palpable, no masses palpable. PSYCH: Alert and oriented x3; mood and affect anxious MUSCULAR skeletal: Evidence of OA NEUROLOGICAL: Cranial nerves grossly intact; no facial asymmetry, power and sensation grossly intact. Chronic slow stuttering of the speech INVESTIGATIONS, reviewed in the clinical context: October 04: White count 5.4 hemoglobin 11.9 potassium 4 BUN 26 creatinine 0.96 INR 2 October 03: INR 2.5 October 03, 2023: White count 5.7 hemoglobin 13.4 platelets 238 INR 3.6 sodium 142 potassium 4.1 BUN 24 creatinine 0.97 Troponin I 0.023, 0.033 EKG tracing personally reviewed by va-ventricle paced rhythm. CT angio chest: Negative for PE noted dissection Chest x-ray film personally reviewed by me-some cardiomegaly. Temple clear Assessment and plan: -Patient presents this afternoon having chest pressure. The shoulder blades and shortness of breath. Feeling tired. EKG is a paced rhythm. Nearly normal troponin. This could be unstable angina Cardiology following For cardiac catheterization pending INR coming down Coumadin held. Switch to IV heparin -IV heparin monitoring Follow PTT -Obesity BMI 33.7 Weight loss measures and follow with PCP -Secondary pulmonary hypertension Follow clinically -Essential hypertension Prinivil, hydralazine, amlodipine -Diabetes mellitus type 2, diet controlled -Persistent atrial fibrillation, rate controlled On Coumadin -Has a pacemaker -Coumadin monitoring Follow INR -GERD Continue with Prilosec -Hyperlipidemia Lipitor 40 mg. 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 at home -Full code Currently no chest pain. IV heparin. Pending cardiac catheterization Past Medical History Past Medical History: Atrial Fibrillation, Cancer, Diabetes Mellitus, GERD/Reflux, Hypertension, Osteoarthritis (OA) Additional Past Medical History / Comment(s): breast ca lymph nodes removal on rt and radiation 10 years ago History of Any Multi-Drug Resistant Organisms: None Reported Past Surgical History: Appendectomy, Back Surgery, Breast Surgery, Joint Replacement, Orthopedic Surgery Additional Past Surgical History / Comment(s): left knee x4, rt knee arthroscopy, bilat shoulders rotator cuffs, back fusion 35years ago Past Anesthesia/Blood Transfusion Reactions: Postoperative Nausea & Vomiting (PONV) Past Psychological History: Anxiety Smoking Status: Former smoker Past Alcohol Use History: Rare Past Drug Use History: None Reported
[2023-10-05] MEDS: IV FLUID CONTINUATION 600 ML IV ONE (16:28)
[2023-10-05] MEDS ORDERED: LIDOCAINE 1% INJ 10MG/ML (20 ML MDV) ONE (16:39)
[2023-10-05] MEDS ORDERED: VERAPAMIL 2.5 MG/ML 2 ML AMP ONE (16:39)
[2023-10-05] MEDS ORDERED: ASPIRIN 325 MG TAB ONE (16:40)
[2023-10-05] MEDS: ASPIRIN 325 MG TAB PO ONE (16:42)
[2023-10-05] MEDS ORDERED: HEPARIN SODIUM 1,000 UN/ML (10ML VL) ONE (16:47)
[2023-10-05] MEDS: MIDAZOLAM 2 MG/2 ML VIAL IVP ONE ×2 (16:50→17:11)
[2023-10-05] MEDS: LIDOCAINE 1% INJ 10MG/ML (20 ML MDV) SQ ONE (16:52)
[2023-10-05] MEDS: VERAPAMIL SYRINGE (5 MG/10 ML) INTRAARTER ONE (16:53)
[2023-10-05] MEDS ORDERED: fentaNYL (PF) 50 MCG/ML 2 ML AMP ONE (16:53)
[2023-10-05] MEDS: fentaNYL (PF) 50 MCG/1 ML VIAL IVP ONE (16:54)
[2023-10-05] MEDS ORDERED: NITROGLYCERIN SL TABS 0.4 MG TAB SUBLINGUAL ONE (17:05)
[2023-10-05] MEDS: NITROGLYCERIN SL TABS 0.4 MG TAB SUBLINGUAL ONE (17:07)
[2023-10-05] MEDS: IOPAMIDOL-370 100ML BTL INJ ONE (17:21)
[2023-10-05] MEDS ORDERED: RX INFO: IV CONTRAST WAS GIVEN 1 EACH MISC MISCELLANE PRN (17:29)
--- NOTE | 2023-10-05 17:31 | P.PCN ---
Date of Procedure: 10/05/23 Operative Findings: CARDIAC CATHETERIZATION PERFORMING PHYSICIAN: Ashu Santana MD, RPVI PROCEDURE PERFORMED: 1. Selective right and left coronary angiogram 2. Left heart catheterization 3. Ultrasound-guided access of the right radial artery INDICATION: Acute non-ST elevation myocardial infarction COMPLICATION: None APPROACH: Right radial artery LEVEL OF SEDATION: Moderate with a sedation length of 29 minutes PROCEDURE DESCRIPTION: After obtaining an informed consent, the patient was brought to cardiac crime lab technician. Local anesthesia was performed using lidocaine subcutaneously. The right radial artery was cannulated using Seldinger technique, the guidewire passed easily, following that we advanced a 5-Czech sheath dilator assembly, the wire and dilator were removed and sheath was flushed. Following that, 2 mg of verapamil along with 5000 unit heparin were given. Selective right and left coronary angiogram using a 6-Czech JR4 and JL 3.5 catheters. Please note that I have to changed 11 cm 6 Czech sheath into 55 cm 6 Czech sheath to negotiate tortuous right subclavian artery. Following that we did left heart catheterization using 6-Czech pigtail catheter. The procedure was completed there was no complication. SELECTIVE CORONARY ANGIOGRAM: The right coronary artery: Large-caliber vessel and a dominant vessel with mild disease only. Left main: Large-caliber vessel appears to be angiographically normal The left circumflex: Large-caliber vessel nondominant vessel with mild disease only. The left anterior descending artery: Large-caliber vessel with mild to moderate disease in the midportion appears to be in the range of 30 to 40% HEMODYNAMICS: The LVEDP was 12 mmHg with no significant gradient across aortic valve CONCLUSION: 1. Mild to moderate nonobstructive CAD 2. Normal left-sided filling pressure POSTPROCEDURE MANAGEMENT: Medical treatment
[2023-10-05 17:55] LABS: Glucose,Whole Blood 170 mg/dL (70-110)
[2023-10-05] MEDS: SODIUM CHLORIDE 0.9% 1,000 ML IV SCH (18:05)
[2023-10-05 20:02] LABS: Glucose,Whole Blood 274 mg/dL (70-110)
[2023-10-05 20:50] VITALS: RESP 16
[2023-10-06 05:57] LABS: Glucose,Whole Blood 182 mg/dL (70-110)
[2023-10-06 07:54] LABS: Prothrombin Time 11.1 sec (10.0-12.5)
[2023-10-06 11:42] LABS: Glucose,Whole Blood 208 mg/dL (70-110)
[2023-10-06 12:03] VITALS: BMI 33.7
--- NOTE | 2023-10-06 12:12 | P.PN ---
Subjective HISTORY OF PRESENT ILLNESS: The patient is a pleasant 87-year-old female patient with a past medical history significant for diabetes and hypertension and dyslipidemia and history of permanent pacemaker and also questionable history of stroke. She presented to the emergency department complaining of chest discomfort and back discomfort. She was in her usual state of health till yesterday when she was at the [facility] and started experiencing discomfort in the middle of the chest as dull feeling with radiation to the back associated with shortness of breath and sweating but no dizziness or lightheadedness and no presyncope or syncope. She presented to the emergency department where she underwent further evaluation including troponin and she was ruled in for acute coronary syndrome. The EKG showed underlying atrial fibrillation with ventricular paced rhythm. She underwent also CT scan of the chest and that showed no evidence of pulmonary embolism. Currently she is chest pain-free. I discussed the finding with the patient in details including the finding of abnormal troponin indicating acute coronary syndrome and the need to undergo a heart catheterization and she would like to think about it. Meanwhile she is on Coumadin for atrial fibrillation which is going to hold at this point and start the patient on heparin IV. Obtain an echocardiogram with Doppler. Consider proceeding with coronary angiogram. The examination is remarkable for stable vital signs with regular rhythm and systolic murmur at the right upper sternal border and clear breathing sounds bilaterally and no edema was noted. October 05, 2023 The patient was seen and evaluated this morning which she is asymptomatic and she is hemodynamically stable. Currently she is on heparin IV. She is also on beta-andrea and statin. Coumadin is on hold at this point. INR today is 2.0. We are going to give the patient some vitamin K IV and repeat the INR later on today. If her INR comes to 1.5 or below I would consider proceeding with coronary angiogram today otherwise need to be done in the next 24 to 48 hours once INR is down. The echo still pending. Examination is remarkable for stable vital signs with regular rate and rhythm and clear breathing sounds bilaterally and no edema was noted. October 06, 2023 Patient is status post cardiac catheterization yesterday with Dr. Santana revealing mild to moderate nonobstructive CAD and normal left-sided filling pressures. Patient examined this morning at the bedside. Patient denies any chest pain or pressure. She denies any shortness of breath. Vital signs are stable. PHYSICAL EXAM: VITAL SIGNS: Reviewed. GENERAL: Well-developed in no acute distress. NECK: Supple. No JVD or thyromegaly LUNGS: Respirations even and unlabored. Lungs essentially clear to auscultation bilaterally. HEART: Regular rate and rhythm. S1 and S2 heard. EXTREMITIES: Normal range of motion. No clubbing or cyanosis. Peripheral pulses intact. No lower extremity edema ASSESSMENT: Non-STEMI, status post cardiac catheterization revealing mild to moderate nonobstructive CAD Permanent atrial fibrillation Hypertension Hyperlipidemia Diabetes History of permanent pacemaker implantation PLAN: Continue current cardiac medications Resume Coumadin. Patient states that she has tried Eliquis and Xarelto in the past and they were too expensive for her. Patient instructed to speak with her primary mechanical system technician about possibility of Pradaxa Patient is stable for discharge home today from a cardiac standpoint She is to follow-up on an outpatient basis with her primary mechanical system technician in [place] Nurse practitioner note has been reviewed by physician. Signing provider agrees with the documented findings, assessment, and plan of care documented by PLATFORM BUILDER as a scribe. Objective - Vital Signs Vital signs: Vital Signs Temp 97.9 F 10/06/23 08:34 Pulse 70 10/06/23 08:34 Resp 16 10/06/23 08:34 BP 117/55 10/06/23 08:34 Pulse Ox 95 10/06/23 08:34 FiO2 Intake & Output 10/05/23 10/06/23 10/06/23 18:59 06:59 18:59 Intake Total 318 138 Balance 318 138 Weight 94.801 kg Intake: IV 200 20 Invasive Line 1 10 Invasive Line 2 10 Oral 118 118 Other: Voiding Method Toilet Toilet Toilet # Voids 3 1 - Labs CBC & Chem 7: 10/05/23 07:02 10/05/23 07:02 Labs: Abnormal Lab Results - Last 24 Hours (Table) 10/05/23 10/05/23 10/05/23 Range/Units 13:06 17:53 20:00 PT 15.2 H (10.0-12.5) sec INR 1.5 H (<1.2) APTT 54.4 H (22.0-30.0) sec POC Glucose (mg/dL) 170 H 274 H (70-110) mg/dL 10/06/23 10/06/23 Range/Units 05:55 11:41 PT (10.0-12.5) sec INR (<1.2) APTT (22.0-30.0) sec POC Glucose (mg/dL) 182 H 208 H (70-110) mg/dL
[2023-10-06 12:20] VITALS: BP 130/66; PULSE 73; TEMP 98.4
[2023-10-06] MEDS: ENOXAPARIN 120 MG/0.8 ML SYRINGE SQ STA (14:21)
[2023-10-06] MEDS ORDERED: WARFARIN 5 MG TAB PO ONE (18:00)
--- NOTE | 2023-10-06 20:42 | P.PN ---
Progress Note - Text Progress Note Date: 10/06/23 Chief Complaint: Chest pain shortness of breath This is a pleasant 87-year-old patient of Dr. Mary Vallecillo. Chronic stable medical conditions include atrial fibrillation, diabetes, GERD, hypertension, osteoarthritis. At her baseline uses a cane and a walker. Patient presents after this afternoon patient started feeling bit short of breath. Having chest pressure. The pain was between her shoulder blades. No other radiation. Chest felt tight. Short of breath on minimal exertion. When I saw the patient I decided to order a stat CTA to rule out an aortic dissection. It was negative for the same. October 03: Seen by cardiology earlier today. Coumadin held. Switch to IV heparin. Plan for cardiac catheterization tomorrow. Spoke to patient daughter at the bedside. Chest discomfort better. October 04: INR 2.0. Remains on IV heparin. No chest pain. Pending cardiac catheterization depending on INR coming down. Sitting at the edge of the bed. October 05: Cardiac cath showed mild to moderate disease in the midportion of LAD. In the range of 30 to 40%. Decision for medical management. Patient has no symptoms. Otherwise feeling well. Cleared by cardiology for discharge. 3 that Past medical history to include: Atrial fibrillation, diabetes, GERD, hypertension, osteomyelitis, breast cancer with lymph nodes removed on the right and radiation 10 years ago, anxiety Social history: Alcohol rarely. son at home. Does use a cane and a walker Physical examination: VITAL SIGNS: 98.4, 73, 16, 130/66, 95% room air GENERAL: Sitting up comfortable EYES: Pupils equal. Conjunctiva normal. NECK: JVD not raised; masses not palpable. HEART: First and second heart sounds are normal; no edema. LUNGS: Respiratory rate normal; clear to auscultation. ABDOMEN: Soft, nontender, liver spleen not palpable, no masses palpable. PSYCH: Alert and oriented x3; mood and affect anxious MUSCULAR skeletal: Evidence of OA NEUROLOGICAL: Cranial nerves grossly intact; no facial asymmetry, power and sensation grossly intact. Chronic slow stuttering of the speech INVESTIGATIONS, reviewed in the clinical context: Cardiac catheterization: Mid LAD 30 to 40% lesion October 04: White count 5.4 hemoglobin 11.9 potassium 4 BUN 26 creatinine 0.96 INR 2 October 03: INR 2.5 October 03, 2023: White count 5.7 hemoglobin 13.4 platelets 238 INR 3.6 sodium 142 potassium 4.1 BUN 24 creatinine 0.97 Troponin I 0.023, 0.033 EKG tracing personally reviewed by me-ventricle paced rhythm. CT angio chest: Negative for PE noted dissection Chest x-ray film personally reviewed by me-some cardiomegaly. Temple clear Assessment and plan: -Unstable angina -Nonobstructive mild to moderate CAD with 30 to 40% lesion in mid LAD -Obesity BMI 33.7 Weight loss measures and follow with PCP -Secondary pulmonary hypertension Follow clinically -Essential hypertension Prinivil, hydralazine, amlodipine -Diabetes mellitus type 2, diet controlled -Persistent atrial fibrillation, rate controlled On Coumadin -Has a pacemaker -Coumadin monitoring Follow INR -GERD Continue with Prilosec -Hyperlipidemia Lipitor 40 mg. 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 at home -Full code Disposition: Home Past Medical History Past Medical History: Atrial Fibrillation, Cancer, Diabetes Mellitus, GERD/Reflux, Hypertension, Osteoarthritis (OA) Additional Past Medical History / Comment(s): breast ca lymph nodes removal on rt and radiation 10 years ago History of Any Multi-Drug Resistant Organisms: None Reported Past Surgical History: Appendectomy, Back Surgery, Breast Surgery, Joint Replacement, Orthopedic Surgery Additional Past Surgical History / Comment(s): left knee x4, rt knee arthroscopy, bilat shoulders rotator cuffs, back fusion 35years ago Past Anesthesia/Blood Transfusion Reactions: Postoperative Nausea & Vomiting (P ONV) Past Psychological History: Anxiety Smoking Status: Former smoker Past Alcohol Use History: Rare Past Drug Use History: None Reported
--- NOTE | 2023-10-08 06:52 | CDI ---
Documentation Clarification Form Date: 10/08/23 From: Anabelle Negron Admit Date: 10/06/2023 10:54:00 AM Patient Name: Sue Cedillo Visit Number: [id number] Discharge Date: 10/06/2023 02:49:00 PM ATTENTION: The Clinical Documentation Specialists (CDI) and [facility] Coding Staff appreciate your assistance in clarifying documentation. Please respond to the clarification below the line at the bottom and electronically sign. The CDI & [facility] Coding staff will review the response and follow-up if needed. Please note: Queries are made part of the Legal Health Record. If you have any questions, please contact the author of this message via ITS. Dr. Stanislav Gerardo, Conflicting documentation has been found in the medical record. As attending physician, please provide clarification. 10/05 Cardiology PN- Non-STEMI,status postcardiac catheterizationrevealing mild to moderate nonobstructiveCAD Your 10/05 PN- Unstable angina. -Nonobstructive mild to moderateCADwith 30 to 40%lesionin mid LAD History/Risk Factors: HTN, HLD, permanent atrial fibrillation, secondary pulmonary HTN, GERD, primary OA, chronic gait dysfunction Clinical Indicators: Chest pain and back pain. Ruled in for ACS. Troponins: 0.023, 0.033 & 0.039 (10/02) LHC: Mild to moderate nonobstructiveCAD. Normal left-sided fillingpressure Treatment: LHC Please clarify which diagnosis is most appropriate: [ ] CAD with unstable angina [ + ] Non-STEMI [ ] Other (please specify) [ ] Unable to determine MTDD
--- NOTE | 2023-10-08 21:09 | P.DS ---
Providers Date of admission: 10/06/23 10:54 Expected date of discharge: 10/06/23 Attending physician: Stanislav Gerardo Consults: 10/03/23 16:27 Consult Physician Routine Consulting Provider: Ashu Santana Consult Reason/Comments: CP Do you want consulting provider notified?: Yes Primary care physician: Mary Vallecillo [facility] Course: Chief Complaint: Chest pain shortness of breath This is a pleasant 87-year-old patient of Dr. Mary Vallecillo. Chronic stable medical conditions include atrial fibrillation, diabetes, GERD, hypertension, osteoarthritis. At her baseline uses a cane and a walker. Patient presents after this afternoon patient started feeling bit short of breath. Having chest pressure. The pain was between her shoulder blades. No other radiation. Chest felt tight. Short of breath on minimal exertion. When I saw the patient I decided to order a stat CTA to rule out an aortic dissection. It was negative for the same. October 03: Seen by cardiology earlier today. Coumadin held. Switch to IV heparin. Plan for cardiac catheterization tomorrow. Spoke to patient daughter at the bedside. Chest discomfort better. October 04: INR 2.0. Remains on IV heparin. No chest pain. Pending cardiac catheterization depending on INR coming down. Sitting at the edge of the bed. October 05: Cardiac cath showed mild to moderate disease in the midportion of LAD. In the range of 30 to 40%. Decision for medical management. Patient has no symptoms. Otherwise feeling well. Cleared by cardiology for discharge. 3 that Past medical history to include: Atrial fibrillation, diabetes, GERD, hypertension, osteomyelitis, breast cancer with lymph nodes removed on the right and radiation 10 years ago, anxiety Social history: Alcohol rarely. son at home. Does use a cane and a walker Physical examination: VITAL SIGNS: 98.4, 73, 16, 130/66, 95% room air GENERAL: Sitting up comfortable EYES: Pupils equal. Conjunctiva normal. NECK: JVD not raised; masses not palpable. HEART: First and second heart sounds are normal; no edema. LUNGS: Respiratory rate normal; clear to auscultation. ABDOMEN: Soft, nontender, liver spleen not palpable, no masses palpable. PSYCH: Alert and oriented x3; mood and affect anxious MUSCULAR skeletal: Evidence of OA NEUROLOGICAL: Cranial nerves grossly intact; no facial asymmetry, power and sensation grossly intact. Chronic slow stuttering of the speech INVESTIGATIONS, reviewed in the clinical context: Cardiac catheterization: Mid LAD 30 to 40% lesion October 04: White count 5.4 hemoglobin 11.9 potassium 4 BUN 26 creatinine 0.96 INR 2 October 03: INR 2.5 October 03, 2023: White count 5.7 hemoglobin 13.4 platelets 238 INR 3.6 sodium 142 potassium 4.1 BUN 24 creatinine 0.97 Troponin I 0.023, 0.033 EKG tracing personally reviewed by me-ventricle paced rhythm. CT angio chest: Negative for PE noted dissection Chest x-ray film personally reviewed by me-some cardiomegaly. Temple clear Assessment and plan: -Unstable angina -Nonobstructive mild to moderate CAD with 30 to 40% lesion in mid LAD -Obesity BMI 33.7 Weight loss measures and follow with PCP -Secondary pulmonary hypertension Follow clinically -Essential hypertension Prinivil, hydralazine, amlodipine -Diabetes mellitus type 2, diet controlled -Persistent atrial fibrillation, rate controlled On Coumadin -Has a pacemaker -Coumadin monitoring Follow INR -GERD Continue with Prilosec -Hyperlipidemia Lipitor 40 mg. 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 at home -Full code Disposition: Home Past Medical History Past Medical History: Atrial Fibrillation, Cancer, Diabetes Mellitus, GERD/Reflux, Hypertension, Osteoarthritis (OA) Additional Past Medical History / Comment(s): breast ca lymph nodes removal on rt and radiation 10 years ago History of Any Multi-Drug Resistant Organisms: None Reported Past Surgical History: Appendectomy, Back Surgery, Breast Surgery, Joint Replacement, Orthopedic Surgery Additional Past Surgical History / Comment(s): left knee x4, rt knee arthroscopy, bilat shoulders rotator cuffs, back fusion 35years ago Past Anesthesia/Blood Transfusion Reactions: Postoperative Nausea & Vomiting (PONV) Past Psychological History: Anxiety Smoking Status: Former smoker Past Alcohol Use History: Rare Past Drug Use History: None Reported Plan - Discharge Summary Discharge Rx Participant: No New Discharge Prescriptions: New Metoprolol Tartrate [Lopressor] 12.5 mg PO BID #60 tab Continue Omeprazole [PriLOSEC] 20 mg PO DAILY Furosemide [Lasix] 20 mg PO BID amLODIPine [Norvasc] 10 mg PO DAILY Cholecalciferol [Vitamin D3 (25 Mcg = 1000 Iu)] 25 mcg PO DAILY Atorvastatin [Lipitor] 40 mg PO HS #30 tab hydrALAZINE HCL [Apresoline] 100 mg PO TID Super B Complex 1 tab PO DAILY Potassium Chloride ER [K-Dur 10] 10 meq PO DAILY Warfarin Sodium 4 mg PO HS lisinopriL [Prinivil] 20 mg PO BID Discharge Medication List Furosemide [Lasix] 20 mg PO BID 10/20/14 [History] Omeprazole [PriLOSEC] 20 mg PO DAILY 10/20/14 [History] amLODIPine [Norvasc] 10 mg PO DAILY 10/14/20 [History] Atorvastatin [Lipitor] 40 mg PO HS #30 tab 10/17/20 [Rx] Cholecalciferol [Vitamin D3 (25 Mcg = 1000 Iu)] 25 mcg PO DAILY 10/03/23 [History] Potassium Chloride ER [K-Dur 10] 10 meq PO DAILY 10/03/23 [History] Super B Complex 1 tab PO DAILY 10/03/23 [History] Warfarin Sodium 4 mg PO HS 10/03/23 [History] hydrALAZINE HCL [Apresoline] 100 mg PO TID 10/03/23 [History] lisinopriL [Prinivil] 20 mg PO BID 10/03/23 [History] Metoprolol Tartrate [Lopressor] 12.5 mg PO BID #60 tab 10/06/23 [Rx] Follow up Appointment(s)/Referral(s): dr scout [Other] - 1 Week (please call and make appointment ) Mary Vallecillo MD [Primary Care Provider] - 1-2 days (please call and make appointment) Patient Instructions/Handouts: *Surgery [facility] - After Heart Catheterization - Auto Body Repairer Instructions, Chest Pain (DC), Heart Catheterization (DC), After Radial Heart Catheterization (GEN) Discharge Disposition: HOME SELF-CARE
== END 2023-10-06 14:49 | disposition home or self-care (01) | DRG 281 ==
LOC: EC 13:33 → 6NMEDSUR 16:28 → 3SCARD 23:07 → OBSVTOIN 10-06 10:54 → UNDODISOB 10-06 14:49
PROVIDERS: ADMIT Hospitalist; ATTEND Hospitalist
PROC: 4A023N7 Measurement of Cardiac Sampling and Pressure, Left Heart, Percutaneous Approach (ICD-10-PCS; principal; 2023-10-05 16:24)
PROC: B2111ZZ Fluoroscopy of Multiple Coronary Arteries using Low Osmolar Contrast (ICD-10-PCS; principal; 2023-10-05 16:24)
DX: I21.4 Non-ST elevation (NSTEMI) myocardial infarction (principal); I48.21 Permanent atrial fibrillation; I27.29 Other secondary pulmonary hypertension; E11.65 Type 2 diabetes mellitus with hyperglycemia; I25.10 Atherosclerotic heart disease of native coronary artery without angina pectoris; I10 Essential (primary) hypertension; E66.9 Obesity, unspecified; Z68.33 Body mass index [BMI] 33.0-33.9, adult; E78.5 Hyperlipidemia, unspecified; F41.9 Anxiety disorder, unspecified; K21.9 Gastro-esophageal reflux disease without esophagitis; M19.91 Primary osteoarthritis, unspecified site; R26.9 Unspecified abnormalities of gait and mobility; Z79.01 Long term (current) use of anticoagulants; Z79.899 Other long term (current) drug therapy; Z87.891 Personal history of nicotine dependence; Z95.0 Presence of cardiac pacemaker; Z98.1 Arthrodesis status; Z85.3 Personal history of malignant neoplasm of breast; Z86.73 Personal history of transient ischemic attack (TIA), and cerebral infarction without residual deficits; Z92.3 Personal history of irradiation; Z71.3 Dietary counseling and surveillance; Z88.0 Allergy status to penicillin; R79.1 Abnormal coagulation profile
CPT/HCPCS: 36415; 71046; 71275; 76937; 80048; 80053; 83036; 83735; 84484; 85025; 85610; 85730; 93005; 93306; 93458; 96365; 96366; 96367; 99285

== ENCOUNTER 2024-10-05 13:01 | Emergency (ER) | payer MEDICARE ==
[2024-10-05 13:09] VITALS: TEMP 97.6
[2024-10-05 14:32] LABS: Basophils # (A) 0.01 10*3/uL (0.00-0.10); Basophils % (A) 0.1 %; Eosinophils # (A) 0.16 10*3/uL (0.04-0.35); Eosinophils % (A) 2.4 %; HCT 37.5 % (37.2-46.3); HGB 12.5 g/dL (12.0-15.0); Lymphocytes # (A) 1.81 10*3/uL (0.90-5.00); Lymphocytes % (A) 26.7 %; MCH 31.8 pg (27.0-32.0); MCHC 33.3 g/dL (32.0-37.0); MCV 95.4 fL (80.0-97.0); Mean Platelet Volume 11.1 fL (9.5-12.2); Monocytes # (A) 0.76 10*3/uL (0.20-1.00); Monocytes % (A) 11.2 %; Neutrophils # (A) 4.02 10*3/uL (1.80-7.70); Neutrophils % (A) 59.2 %; Platelet Count 276 10*3/uL (140-440); RBC 3.93 10*6/uL (4.10-5.20); RDW 14.1 % (11.5-14.5); WBC 6.79 10*3/uL (4.50-10.00)
--- NOTE | 2024-10-05 14:42 | ED ---
General Adult HPI - General Chief complaint: Vaginal Bleeding Stated complaint: Vaginal bleeding Time Seen by Provider: 10/05/24 13:37 Source: patient, RN notes reviewed, old records reviewed Mode of arrival: wheelchair Limitations: no limitations - History of Present Illness Initial comments: 88-year-old female presenting for evaluation of vaginal bleeding. Patient symptoms began 1 week ago. She was seen at outside hospital and was instructed to follow-up regarding her bleeding. She is on Coumadin with history of atrial fibrillation. She states she feels somewhat weak but has no specific complaints. No prior history of uterine pathology. Patient denies rectal bleeding. She is currently being treated for UTI. - Related Data Home Medications Medication Instructions Recorded Confirmed Furosemide [Lasix] 20 mg PO BID 10/20/14 10/03/23 Omeprazole [PriLOSEC] 20 mg PO DAILY 10/20/14 10/03/23 amLODIPine [Norvasc] 10 mg PO DAILY 10/14/20 10/03/23 Cholecalciferol [Vitamin D3 (25 25 mcg PO DAILY 10/03/23 10/03/23 Mcg = 1000 Iu)] Potassium Chloride ER [K-Dur 10] 10 meq PO DAILY 10/03/23 10/03/23 Super B Complex 1 tab PO DAILY 10/03/23 10/03/23 Warfarin Sodium 4 mg PO HS 10/03/23 10/03/23 hydrALAZINE HCL [Apresoline] 100 mg PO TID 10/03/23 10/03/23 lisinopriL [Prinivil] 20 mg PO BID 10/03/23 10/03/23 Previous Rx's Medication Instructions Recorded Atorvastatin [Lipitor] 40 mg PO HS #30 tab 10/17/20 Metoprolol Tartrate [Lopressor] 12.5 mg PO BID #60 tab 10/06/23 Allergies Allergy/AdvReac Type Severity Reaction Status Date / Time Penicillins Allergy Rash/Hives Verified 10/05/24 13:09 Review of Systems ROS Statement: Those systems with pertinent positive or pertinent negative responses have been documented in the HPI. ROS Other: All systems not noted in ROS Statement are negative. Past Medical History Past Medical History: Atrial Fibrillation, Cancer, Diabetes Mellitus, GERD/Reflux, Hypertension, Osteoarthritis (OA) Additional Past Medical History / Comment(s): breast ca lymph nodes removal on rt and radiation 10 years ago History of Any Multi-Drug Resistant Organisms: None Reported Past Surgical History: Appendectomy, Back Surgery, Breast Surgery, Joint Replacement, Orthopedic Surgery Additional Past Surgical History / Comment(s): left knee x4, rt knee arthroscopy, bilat shoulders rotator cuffs, back fusion 35years ago Past Anesthesia/Blood Transfusion Reactions: Postoperative Nausea & Vomiting (PONV) Past Psychological History: Anxiety Smoking Status: Former smoker Past Alcohol Use History: Rare Past Drug Use History: None Reported - Past Family History Father Family Medical History: Coronary Artery Disease (CAD), CVA/TIA, Diabetes Mellitus Mother Family Medical History: Coronary Artery Disease (CAD), Hyperlipidemia, Hypertension, Renal Disease General Exam Limitations: no limitations General appearance: alert, in no apparent distress Head exam: Present: atraumatic, normocephalic Eye exam: Present: normal appearance, PERRL ENT exam: Present: normal exam Neck exam: Present: normal inspection. Absent: tenderness, meningismus Respiratory exam: Present: normal lung sounds bilaterally. Absent: respiratory distress, wheezes Cardiovascular Exam: Present: regular rate, normal rhythm GI/Abdominal exam: Present: soft, tenderness (Suprapubic). Absent: distended Extremities exam: Present: normal inspection Neurological exam: Present: alert, oriented X3, CN II-XII intact. Absent: motor sensory deficit Psychiatric exam: Present: normal affect, normal mood Skin exam: Present: warm, dry, intact Course Vital Signs 10/05/24 10/05/24 13:06 19:30 Temperature 97.6 F Pulse Rate 73 78 Respiratory 16 18 Rate Blood Pressure 133/72 134/68 O2 Sat by Pulse 95 97 Oximetry Medical Decision Making - Medical Decision Making Was pt. sent in by a medical professional or institution (, PA, HEEL STIFFENER, urgent ca re, hospital, or shelter...) When possible be specific @ -No Did you speak to anyone other than the patient for history (EMS, parent, family, police, friend...)? What history was obtained from this source @ -No Did you review nursing and triage notes (agree or disagree)? Why? @ -I reviewed and agree with nursing and triage notes Were old charts reviewed (outside hosp., previous admission, EMS record, old EKG, old radiological studies, urgent care reports/EKG's, shelter records)? Report findings @ -No old charts were reviewed Differential Diagnosis: Fibroid uterus, endometrial cancer, vaginal wall laceration or abrasion, coagulopathy EKG interpreted by me (3pts min.). @ -As above X-rays interpreted by me (1pt min.). @ -None done CT interpreted by me (1pt min.). @ -None done U/S interpreted by me (1pt. min.). @ -Ultrasound shows a 1 cm thickened endometrium. What testing was considered but not performed or refused? (CT, X-rays, U/S, labs)? Why? @ -None What meds were considered but not given or refused? Why? @ -None Did you discuss the management of the patient with other professionals (professionals i.e. , PA, HEEL STIFFENER, lab, RT, psych nurse, social welfare clerk, pattern technician, teacher, ict help desk officer, rn case mgr)? Give summary @ -Case discussed with Dr. Marti covering for gynecology, recommends outpatient workup including biopsy Was smoking cessation discussed for >3mins.? @ -No Was critical care preformed (if so, how long)? @ -No Were there social determinants of health that impacted care today? How? (Homelessness, low income, unemployed, alcoholism, drug addiction, transportation, low edu. Level, literacy, decrease access to med. care, residential, rehab)? @ -No Was there de-escalation of care discussed even if they declined (Discuss DNR or withdrawal of care, Hospice)? DNR status @ -No What co-morbidities impacted this encounter? (DM, HTN, Smoking, COPD, CAD, Cancer, CVA, ARF, Chemo, Hep., AIDS, mental health diagnosis, sleep apnea, morbid obesity)? @ -Atrial fibrillation on Coumadin Was patient admitted / discharged? Hospital course, mention meds given and route, prescriptions, significant lab abnormalities, going to OR and other pertinent info. @ -[88-year-old female with several day history of vaginal bleeding. Patient well-appearing with stable vitals. She has a stable hemoglobin, INR 2.7. Ultrasound shows a minimally thickened endometrium at 1 cm. I discussed case with gynecology, recommended outpatient workup at this time. Patient will monitor bleeding closely and follow-up as an outpatient, return parameters discussed. Undiagnosed new problem with uncertain prognosis? @ -No Drug Therapy requiring intensive monitoring for toxicity (Heparin, Nitro, Insulin, Cardizem)? @ -No Were any procedures done? @ -No Diagnosis/symptom? @Vaginal bleeding Acute, or Chronic, or Acute on Chronic? @ -Acute Uncomplicated (without systemic symptoms) or Complicated (systemic symptoms)? @ -Default Side effects of treatment? @ -No Exacerbation, Progression, or Severe Exacerbation? @ -No Poses a threat to life or bodily function? How? (Chest pain, [place], [place], pneumonia, PE, COPD, DKA, ARF, appy, cholecystitis, CVA, Diverticulitis, Homicidal, Suicidal, threat to staff... and all critical care pts) @Low risk at this time - Lab Data Result diagrams: 10/05/24 14:00 10/05/24 14:00 Lab Results 10/05/24 10/05/24 10/05/24 Range/Units 14:00 14:00 14:00 WBC 6.79 (4.50-10.00) 10*3/uL RBC 3.93 L (4.10-5.20) 10*6/uL Hgb 12.5 (12.0-15.0) g/dL Hct 37.5 (37.2-46.3) % MCV 95.4 (80.0-97.0) fL MCH 31.8 (27.0-32.0) pg MCHC 33.3 (32.0-37.0) g/dL Plt Count 276 (140-440) 10*3/uL MPV 11.1 (9.5-12.2) fL Immature Gran % (Auto) 0.4 % Neutrophils % 59.2 % Lymphocytes % 26.7 % Monocytes % 11.2 % Eosinophils % 2.4 % Basophils % 0.1 % Immature Gran # 0.03 (0.00-0.04) 10*3/uL Neutrophils # 4.02 (1.80-7.70) 10*3/uL Lymphocytes # 1.81 (0.90-5.00) 10*3/uL Monocytes # 0.76 (0.20-1.00) 10*3/uL Eosinophils # 0.16 (0.04-0.35) 10*3/uL Basophils # 0.01 (0.00-0.10) 10*3/uL PT 26.8 H (10.0-12.5) sec INR 2.7 H (<1.2) APTT 34.3 H (22.0-30.0) sec Sodium 142 (137-145) mmol/L Potassium 3.8 (3.5-5.1) mmol/L Chloride 101 (98-107) mmol/L Carbon Dioxide 28 (22-30) mmol/L Anion Gap 13 mmol/L BUN 27 H (7-17) mg/dL Creatinine 1.24 H (0.52-1.04) mg/dL Est GFR (CKD-EPI)AfAm 45 (>60 ml/min/1.73 sqM) Est GFR (CKD-EPI)NonAf 39 (>60 ml/min/1.73 sqM) Glucose 111 H (74-99) mg/dL Calcium 9.6 (8.4-10.2) mg/dL Total Bilirubin 0.6 (0.2-1.3) mg/dL AST 21 (14-36) U/L ALT 11 (4-34) U/L Alkaline Phosphatase 99 (38-126) U/L Total Protein 7.3 (6.3-8.2) g/dL Albumin 4.2 (3.5-5.0) g/dL Urine Color Urine Appearance (Clear) Urine pH (5.0-8.0) Ur Specific [place] (1.001-1.035) Urine Protein (Negative) Urine Glucose (UA) (Negative) Urine Ketones (Negative) Urine Blood (Negative) Urine Nitrite (Negative) Urine Bilirubin (Negative) Urine Urobilinogen (<2.0) mg/dL Ur Leukocyte Esterase (Negative) Urine RBC (0-5) /hpf Urine WBC (0-5) /hpf Ur Squamous Epith Cells (0-4) /hpf Urine Bacteria (None) /hpf Hyaline Casts (0-2) /lpf Urine Mucus (None) /hpf 10/05/24 Range/Units 14:00 WBC (4.50-10.00) 10*3/uL RBC (4.10-5.20) 10*6/uL Hgb (12.0-15.0) g/dL Hct (37.2-46.3) % MCV (80.0-97.0) fL MCH (27.0-32.0) pg MCHC (32.0-37.0) g/dL Plt Count (140-440) 10*3/uL MPV (9.5-12.2) fL Immature Gran % (Auto) % Neutrophils % % Lymphocytes % % Monocytes % % Eosinophils % % Basophils % % Immature Gran # (0.00-0.04) 10*3/uL Neutrophils # (1.80-7.70) 10*3/uL Lymphocytes # (0.90-5.00) 10*3/uL Monocytes # (0.20-1.00) 10*3/uL Eosinophils # (0.04-0.35) 10*3/uL Basophils # (0.00-0.10) 10*3/uL PT (10.0-12.5) sec INR (<1.2) APTT (22.0-30.0) sec Sodium (137-145) mmol/L Potassium (3.5-5.1) mmol/L Chloride (98-107) mmol/L Carbon Dioxide (22-30) mmol/L Anion Gap mmol/L BUN (7-17) mg/dL Creatinine (0.52-1.04) mg/dL Est GFR (CKD-EPI)AfAm (>60 ml/min/1.73 sqM) Est GFR (CKD-EPI)NonAf (>60 ml/min/1.73 sqM) Glucose (74-99) mg/dL Calcium (8.4-10.2) mg/dL Total Bilirubin (0.2-1.3) mg/dL AST (14-36) U/L ALT (4-34) U/L Alkaline Phosphatase (38-126) U/L Total Protein (6.3-8.2) g/dL Albumin (3.5-5.0) g/dL Urine Color Yellow Urine Appearance Clear (Clear) Urine pH 5.0 (5.0-8.0) Ur Specific [place] 1.010 (1.001-1.035) Urine Protein Negative (Negative) Urine Glucose (UA) Negative (Negative) Urine Ketones Negative (Negative) Urine Blood Large H (Negative) Urine Nitrite Negative (Negative) Urine Bilirubin Negative (Negative) Urine Urobilinogen <2.0 (<2.0) mg/dL Ur Leukocyte Esterase Moderate H (Negative) Urine RBC >182 H (0-5) /hpf Urine WBC 46 H (0-5) /hpf Ur Squamous Epith Cells 1 (0-4) /hpf Urine Bacteria Rare H (None) /hpf Hyaline Casts 8 H (0-2) /lpf Urine Mucus Rare H (None) /hpf Disposition Clinical Impression: Vaginal bleeding, abnormal Disposition: HOME SELF-CARE Condition: Fair Instructions (If sedation given, give patient instructions): Abnormal (Dysfunctional) Uterine Bleeding (ED) Is patient prescribed a controlled substance at d/c from ED?: No Referrals: Mary Vallecillo MD [Primary Care Provider] - 1-2 days Gunner Marti MD [STAFF PHYSICIAN] - 1-2 days Time of Disposition: 20:16
[2024-10-05 14:46] LABS: INR 2.7 (<1.2); Partial Thromboplastin Time 34.3 sec (22.0-30.0); Prothrombin Time 26.8 sec (10.0-12.5)
[2024-10-05 14:49] LABS: Appearance,Urine Clear (Clear); Bacteria,Urine Rare /hpf; Bilirubin,Urine Negative (Negative); Blood,Urine Large (Negative); Color,Urine Yellow; Glucose,Urine (UA) Negative (Negative); Hyaline Casts,Urine 8 /lpf (0-2); Ketones,Urine Negative (Negative); Leukocyte Esterase,Urine Moderate (Negative); Mucus,Urine Rare /hpf; Nitrite,Urine Negative (Negative); Protein,Urine Negative (Negative); RBC,Urine >182 /hpf (0-5); Squamous Epithelial Cell,Urine 1 /hpf (0-4); Urobilinogen,Urine <2.0 mg/dL (<2.0); WBC,Urine 46 /hpf (0-5)
[2024-10-05 14:54] LABS: ALT 11 U/L (4-34); AST 21 U/L (14-36); African American GFR (CKD) 45 (>60 ml/min/1.73 sqM); Albumin 4.2 g/dL (3.5-5.0); Alkaline Phosphatase 99 U/L (38-126); Anion Gap 13 mmol/L; Blood Urea Nitrogen 27 mg/dL (7-17); Calcium 9.6 mg/dL (8.4-10.2); Carbon Dioxide 28 mmol/L (22-30); Chloride 101 mmol/L (98-107); Glucose 111 mg/dL (74-99); Non-African American GFR(CKD) 39 (>60 ml/min/1.73 sqM); Potassium 3.8 mmol/L (3.5-5.1); Sodium 142 mmol/L (137-145); Total Bilirubin 0.6 mg/dL (0.2-1.3); Total Protein 7.3 g/dL (6.3-8.2)
[2024-10-05] MEDS: SODIUM CHLORIDE 0.9% 500 ML 500 ML IV ONE (17:45)
[2024-10-05 19:31] VITALS: RESP 18
--- NOTE | 2024-10-05 20:01 | US ---
EXAMINATION TYPE: US pelvic complete DATE OF EXAM: 10/05/2024 COMPARISON: NONE CLINICAL INDICATION: Female, 88 years old with history of Vaginal bleeding; patient states vaginal bl eeding for 10 shahriar days TECHNIQUE: Transabdominal (TA). Transabdominal grayscale sonographic images of the pelvis were acquired. Doppler imaging: Not performed. FINDINGS: Date of LMP: postmenopausal EXAM MEASUREMENTS: Uterus: 7.1 x 1.7 x 3.6 cm Endometrial Stripe: 1.0 cm. Normal less than 0.5 cm Right Ovary: unable to visualize due to gas and postmenopausal status Left Ovary: unable to visualize due to gas and postmenopausal status 1. Uterus: Anteverted wnl as best seen 2. Endometrium: appears thickened for postmenopausal patient. no vascularity seen within 3. Right Ovary: unable to visualize due to gas and postmenopausal status 4. Left Ovary: unable to visualize due to gas and postmenopausal status Spectral, color and waveform doppler imaging shows good arterial and venous flow within the ovaries ; there is no evidence for ovarian torsion. 5. Bilateral Adnexa: wnl 6. Posterior cul-de-sac: wnl Urinary bladder is sonolucent. Posterior wall is normal. IMPRESSION: Thickened endometrial canal. Consider additional workup. O-RADS 2021 [email or web address] [facility], , 10/05/2024 7:59 PM
[2024-10-05 21:21] VITALS: BP 143/64; PULSE 71
== END 2024-10-05 21:18 | disposition home or self-care (01) ==
LOC: EC 13:01
DX: N93.9 Abnormal uterine and vaginal bleeding, unspecified (principal); I11.9 Hypertensive heart disease without heart failure; I48.91 Unspecified atrial fibrillation; Z87.891 Personal history of nicotine dependence; Z88.0 Allergy status to penicillin
CPT/HCPCS: 36415; 76856; 80053; 81001; 85025; 85610; 85730; 87077; 87086; 87186; 99284

== ENCOUNTER → 2024-11-18 | Outpatient (CLI) | payer MEDICARE ==
[2024-11-18 20:12] LABS: Basophils # (A) 0.02 X 10*3/uL (0.00-0.10); Basophils % (A) 0.3 %; Eosinophils # (A) 0.10 X 10*3/uL (0.04-0.35); Eosinophils % (A) 1.6 %; HCT 36.1 % (37.2-46.3); HGB 11.3 g/dL (12.0-15.0); Immature Grans, Automated 0.60 %; Lymphocytes # (A) 1.57 X 10*3/uL (0.90-5.00); Lymphocytes % (A) 25.2 %; MCH 30.5 pg (27.0-32.0); MCHC 31.3 g/dL (32.0-37.0); MCV 97.3 FL (80.0-97.0); Monocytes # (A) 0.67 X 10*3/uL (0.20-1.00); Monocytes % (A) 10.8 %; NRBC Per 100 WBC 0 X 10*3/uL (0.00-0.01); Neutrophils # (A) 3.83 X 10*3/uL (1.80-7.70); Neutrophils % (A) 61.5 %; Platelet Count 267 X 10*3/uL (140-440); RBC 3.71 X 10*6/uL (4.10-5.20); RDW 14.1 % (11.5-14.5); WBC 6.23 X 10*3/uL (4.50-10.00)
== END | disposition home or self-care (01) ==
LOC: LABWHC1 13:21
PROVIDERS: ATTEND Obstetrics & Gynecology
DX: Z01.812 Encounter for preprocedural laboratory examination (principal); I10 Essential (primary) hypertension; I48.91 Unspecified atrial fibrillation
CPT/HCPCS: 36415; 85025

== ENCOUNTER 2024-11-26 08:00 | Day surgery (SDC) | payer MEDICARE ==
[~2024-11-26 08:00] MED LIST: Pre Op ABX Message 1 EACH MISC MISCELLANE ONE
[2024-11-26] MEDS ORDERED: LIDOCAINE 1% (10MG/ML) FOR IV START INTRADERMA PRN (08:16)
[2024-11-26] MEDS ORDERED: fentaNYL (PF) 50 MCG/ML 2 ML AMP IVP PRN (08:16)
[2024-11-26] MEDS ORDERED: HYDROmorphone 0.5 MG/0.5 ML SYRINGE IVP PRN (08:16)
[2024-11-26] MEDS ORDERED: MIDAZOLAM 2 MG/2 ML VIAL IV PRN (08:16)
[2024-11-26] MEDS: IV FLUID CONTINUATION 1,000 ML IV ONE (08:28)
[2024-11-26] MEDS: LACTATED RINGERS 1,000 ML IV SCH (08:55)
[2024-11-26 08:56] LABS: Glucose,Whole Blood 116 mg/dL (70-110)
[2024-11-26] MEDS: ONDANSETRON 4 MG/2 ML VIAL IVP ONE (08:56)
[2024-11-26] MEDS: DEXAMETHASONE SOD PHOSPHATE 4 MG/ML 1 ML VIAL IV ONE (08:56)
[2024-11-26 09:04] VITALS: RESP 16; TEMP 97.2
[2024-11-26] MEDS ORDERED: fentaNYL (PF) 50 MCG/ML 2 ML AMP ONE (09:10)
[2024-11-26] MEDS ORDERED: LIDOCAINE 1% INJ 10MG/ML (20 ML MDV) ONE (09:10)
[2024-11-26] MEDS ORDERED: PROPOFOL 10 MG/ML 20 ML VIAL IV ONE (09:10)
[2024-11-26] MEDS ORDERED: KETOROLAC 15 MG/ML 1 ML VIAL IVP PRN (09:45)
[2024-11-26] MEDS ORDERED: SIMETHICONE 80 MG CHEWABLE PO PRN (09:45)
[2024-11-26] MEDS ORDERED: ACETAMINOPHEN TAB 325 MG TAB PO PRN (09:45)
[2024-11-26] MEDS ORDERED: diphenhydrAMINE 50 MG/ML 1 ML VIAL IVP PRN (09:45)
[2024-11-26] MEDS ORDERED: diphenhydrAMINE 25 MG CAP PO PRN (09:45)
[2024-11-26] MEDS ORDERED: IBUPROFEN 600 MG TAB PO PRN (09:45)
[2024-11-26] MEDS ORDERED: LACTATED RINGERS 1,000 ML IV SCH (09:45)
[2024-11-26] MEDS ORDERED: ONDANSETRON 4 MG/2 ML VIAL IVP PRN (09:45)
[2024-11-26] MEDS ORDERED: METOCLOPRAMIDE 5 MG/ML 2 ML VIAL IVP PRN (09:45)
--- NOTE | 2024-11-26 09:55 | P.OP ---
Date of Procedure: 11/26/24 Preoperative Diagnosis: #1. Postmenopausal bleeding Postoperative Diagnosis: Same Procedure(s) Performed: #1. Diagnostic hysteroscopy #2. Dilation and curettage Anesthesia: other (MAC) Surgeon: Gunner Marti Estimated Blood Loss (ml): 2 IV fluids (ml): 400 Urine output (ml): 10 Pathology: other (Endometrial curettings) Condition: stable Disposition: PACU Operative Findings: Pelvic examination demonstrated an atrophic midplane normal uterus with normal adnexa bilaterally. Intraoperatively, the uterus sounded to 8 cm. Purulent material was seen coming from the cervix during the entire dilation phase and a significant foul odor was noted. Using the hysteroscope, there was a moderate amount of shaggy tissue in the mid endometrial cavity but visualization was obscured secondary to debris floating in the fluid. A small to moderate amount of tissue was removed. The anterior wall of the uterus felt to be somewhat soft and did not have the typical gritty texture while the posterior wall did have the typical gritty texture. Description of Procedure: The patient was prepped and draped in usual fashion after anesthesia was administered by the anesthesiologist. A weighted speculum was placed and the bladder drained of approximately 10 mL of clear stacie urine. The anterior lip of the cervix is grasped with a single-tooth tenaculum and the uterus sounded to 8 cm as noted above. As soon as a dilator or the sound was entered into the cavity, purulent material was noted slowly pouring from the cervical os. There was a significant foul odor present as well. Serial dilation was carried out to admit the diagnostic hysteroscope which was placed and the findings are as noted above with a moderate amount of shaggy tissue seen throughout. The tubal ostia were not identified secondary to poor visualization with tissue and debris floating in the saline used to distend the uterus. The scope was set aside and a medium sharp curette introduced into the cavity. Thorough and circumferential curettage was carried out onto a Telfa placed in the vagina. The anterior wall was felt to be somewhat soft and there was never a typical gritty texture encountered while the posterior wall did have a typical gritty texture. A moderate amount of tissue was removed onto the Telfa in the vagina. After adequate curettage was carried out, the specimen was sent for pathological diagnoses and all instrumentation removed. There was no ongoing significant bleeding either from the tenaculum site or from the cervix. Estimated blood loss was 2 mL. There were no complications. All sponge, instrument, and needle counts were correct. The patient tolerated the procedure well and proceeded to the recovery room in stable condition.
[2024-11-26 11:22] VITALS: BP 139/84; PULSE 74
== END 2024-11-26 11:23 | disposition home or self-care (01) ==
LOC: OR 08:00
PROVIDERS: ATTEND Obstetrics & Gynecology
DX: N85.8 Other specified noninflammatory disorders of uterus (principal); I48.91 Unspecified atrial fibrillation; K21.9 Gastro-esophageal reflux disease without esophagitis; E11.9 Type 2 diabetes mellitus without complications; E78.5 Hyperlipidemia, unspecified; M19.90 Unspecified osteoarthritis, unspecified site; I10 Essential (primary) hypertension; Z95.0 Presence of cardiac pacemaker; Z88.0 Allergy status to penicillin; Z89.522 Acquired absence of left knee; Z89.521 Acquired absence of right knee; Z79.899 Other long term (current) drug therapy; Z85.3 Personal history of malignant neoplasm of breast
CPT/HCPCS: 88305